=== PATIENT | male | born 1950 | race Caucasian/White ===

== ENCOUNTER 2018-11-16 06:23 | Inpatient (IN) | payer MEDICARE, OTHER ==
[~2018-11-16] VITALS: Ht 182.9 cm; Wt 152.5 kg
[~2018-11-16 06:23] MED LIST: GLIP5ER PO; GLIPIZIDE; INSLI100I SQ; INSLI100I SUBQ; INSULANI SC; INSULANI SUBQ; LANTUS; LISI5 PO; LISINOPRIL; METF500 PO; ONDA4 PO; ONDA4ODT MM; POTCHL20ER PO; RXONDA4ODT MM; SULTRIDS PO; TERB250 PO
[2018-11-16 07:42] LABS: BASOPHILS ABSOLUTE AUTO 0.04 K/mm3 (0.00-0.23); BASOPHILS PERCENT AUTO 0 % (0-2); EOSINOPHILS PERCENT AUTO 1 % (0-6); Hematocrit 29.2 % (37.0-53.0); Hemoglobin 9.3 g/dL (13.5-17.5); IMMATURE GRAN ABSOLUTE AUTO 0.06 K/mm3 (0.00-0.10); IMMATURE GRAN PERCENT AUTO 1 % (0-1); LYMPHOCYTES ABSOLUTE AUTO 1.06 K/mm3 (0.84-5.20); LYMPHOCYTES PERCENT AUTO 9 % (21-46); MONOCYTES ABSOLUTE AUTO 0.93 K/mm3 (0.16-1.47); MONOCYTES PERCENT AUTO 8 % (4-13); Mean Corpuscular HGB 30.1 pg (26.0-34.0); Mean Corpuscular HGB Conc 31.8 g/dL (31.5-36.5); Mean Corpuscular Volume 95 fL (80-100); NEUTROPHILS ABSOLUTE AUTO 9.54 K/mm3 (1.96-9.15); NEUTROPHILS PERCENT AUTO 81 % (41-73); Platelet Count 178 K/mm3 (150-400); RDW Coefficient Variation 15.8 % (11.7-14.2); RDW Standard Deviation 55.2 fL (35.1-46.3); Red Blood Cell Count 3.09 M/mm3 (4.30-5.90); White Blood Cell Count 11.73 K/mm3 (4.00-11.30)
[2018-11-16] MEDS ORDERED: ASPI81CH PO (07:44)
[2018-11-16] MEDS ORDERED: ACET325 PO (07:44)
[2018-11-16] MEDS ORDERED: BISA10S PR (07:45)
[2018-11-16] MEDS ORDERED: CHOL10002 (07:45)
[2018-11-16] MEDS ORDERED: CHLO25B PO (07:46)
[2018-11-16] MEDS ORDERED: CLOBET30L TOP (07:47)
[2018-11-16] MEDS ORDERED: FINA5 PO ×2 (07:49→12:43)
[2018-11-16] MEDS ORDERED: LOSARTAN POTAS100 MG PO (07:50)
[2018-11-16] MEDS ORDERED: METO100ER PO (07:51)
[2018-11-16] MEDS ORDERED: THERA1 EACH (07:52)
[2018-11-16] MEDS ORDERED: METF500C PO ×2 (07:52→13:04)
[2018-11-16] MEDS ORDERED: Belladonna-Opi1 EACH PR (07:54)
[2018-11-16] MEDS ORDERED: TAMS.4ER PO (07:56)
[2018-11-16] MEDS ORDERED: Vitamin D2000 UNIT PO (07:57)
[2018-11-16 07:58] LABS: International Normalized Ratio 1.14; Prothrombin Time Results 11.9 Sec (9.7-11.5)
[2018-11-16 08:05] LABS: Albumin, Blood 2.2 g/dL (3.4-5.0); Albumin/Globulin Ratio 0.3 (0.8-1.8); Bilirubin, Total 1.3 mg/dL (0.1-1.0); Bun/Creatinine Ratio 27.1 (12.0-20.0); Calcium, Blood 8.7 mg/dL (8.5-10.1); Creatinine, Blood 1.33 mg/dL (0.60-1.20); Globulin, Blood 6.6 g/dL (2.2-4.0); Potassium, Blood 4.5 mmol/L (3.5-5.5); Total Protein, Blood 8.8 g/dL (6.4-8.2)
[2018-11-16 08:11] LABS: Source, Urine Catheter
[2018-11-16 08:17] LABS: Bilirubin, Urine Neg (Neg); Blood, Urine 3+ (Neg); Glucose Qualitative, Urine Neg (Neg); Ketones, Urine 1+ (Neg); Leukocyte Esterase, Urine 3+ (Neg); Nitrite, Urine Pos (Neg); Protein, Urine 2+ (Neg); Urobilinogen, Urine NORM (Normal)
[2018-11-16 08:34] LABS: Appearance, Urine Hazy (Clear); Bacteria Few /hpf; Color, Urine Yellow (P-Yellow); Squamous Epithelial Cells Not Seen /hpf (Few); White Blood Cells, Urine 25-50 /hpf (0-5)
[2018-11-16] MEDS ORDERED: LO-DOSE ASPIRIN81 MG PO (12:34)
[2018-11-16] MEDS ORDERED: CLOTRIMAZOLE TOP (12:41)
[2018-11-16] MEDS ORDERED: CALCIUM 600 +1 EAC1 PO (13:06)
[2018-11-16] MEDS ORDERED: Belladonna-Opi1 EAC1 PR (13:09)
[2018-11-16 16:22] LABS: Source, Urine Catheter
[2018-11-16 16:29] LABS: Bilirubin, Urine Neg (Neg); Blood, Urine 5+ (Neg); Glucose Qualitative, Urine 4+ (Neg); Ketones, Urine 1+ (Neg); Leukocyte Esterase, Urine 2+ (Neg); Nitrite, Urine Neg (Neg); Protein, Urine 2+ (Neg); Specific Gravity, Urine 1.015 (1.003-1.022); Urobilinogen, Urine NORM (Normal)
[2018-11-16 16:36] LABS: Appearance, Urine Clear (Clear); Color, Urine Yellow (P-Yellow)
[2018-11-16 16:38] LABS: Red Blood Cells, Urine 25-50 /hpf (0-2)
[2018-11-16 16:39] LABS: Bacteria Not Seen /hpf; Squamous Epithelial Cells Rare /hpf (Few)
[2018-11-16 18:44] LABS: PCO2 Arterial 27.8 mmHg (35-45); PO2 Arterial 61.7 mmHg (80-100); pH Blood Arterial 7.44 (7.35-7.45)
--- NOTE | 2018-11-16 18:59 | NUR ---
CALL TO DR RANKIN CALLED TO NOTIFY OF CHANGE STATUS, VS, BEHAVIOR, PAIN. NEW ORDERS REC, CAME TO BEDSIDE. 0.4MG NARCAN ADMIN, 10 HYDRAL X2, COOLING BLANKET APPLIED (PT HAD ICE PACKS WHICH WERE INEFFECTIVE). RN AT BEDSIDE WAITING FOR ASSIGN TO WINDOWS DESKTOP SUPPORT FOR XFER.
--- NOTE | 2018-11-16 20:00 | NUR ---
TRANSFER PT ARRIVED TO ICU 9 AT 1930 FROM MEDICAL FLOOR VIA BED. PT IS AWAKE AND MOANING OUT UPON ARRIVAL. PT ANSWERS QUESTIONS APPROPRIATELY. PT COMPLAINS OF PAIN WITH BP CUFF INFLATION. VITAL SIGNS STABLE. PT ON ROOM AIR. NS INFUSING AT 150 ML/HR. PT WITH ICE PACKS AND FANS FOR COOLING AT THIS TIME. 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 PT ABLE TO MOVE LUE. PT WITH BROWNING IN PLACE WITH YELLOW OUTPUT NOTED. FAMILY AT BEDSIDE. WILL CONTINUE TO MONITOR.
[2018-11-17 03:58] LABS: Hematocrit 29.8 % (37.0-53.0); Hemoglobin 9.4 g/dL (13.5-17.5); Mean Corpuscular HGB 29.7 pg (26.0-34.0); Mean Corpuscular HGB Conc 31.5 g/dL (31.5-36.5); Mean Corpuscular Volume 94 fL (80-100); Mean Platelet Volume 9.9 fL (9.1-12.4); Platelet Count 152 K/mm3 (150-400); Red Blood Cell Count 3.17 M/mm3 (4.30-5.90); White Blood Cell Count 13.14 K/mm3 (4.00-11.30)
[2018-11-17 04:13] LABS: Bun/Creatinine Ratio 22.3 (12.0-20.0); Calcium, Blood 8.1 mg/dL (8.5-10.1); Creatinine, Blood 1.48 mg/dL (0.60-1.20); Potassium, Blood 5.1 mmol/L (3.5-5.5)
--- NOTE | 2018-11-17 05:42 | NUR ---
SHIFT SUMMARY NO ACUTE CHANGES THIS SHIFT. PT HAS IMPROVED MENTATION THIS MORNING. PT IS ABLE TO CONVERSE IN FULL SENTENCES WHEN AWAKE. PT RESTING QUIETLY AT THIS TIME. VITAL SIGNS HAVE REMAINED STABLE. PT ON ROOM AIR. PT AFEBRILE AT THIS TIME. NS INFUSING AT 150 ML/HR WITH ZOSYN IVPB. BROWNING REMAINS IN PLACE WITH GOOD URINE OUTPUT THIS SHIFT. NO CHANGES TO PT'S MOBILITY OR SENSATION. FAMILY MEMBER REMAINS AT BEDSIDE. WILL CONTINUE TO MONITOR AND REPORT OFF TO ONCOMING RN.
--- NOTE | 2018-11-17 07:00 | NUR ---
RECEIVED REPORT FROM RONALD ISSA, AND ASSUMED CARE OF PT.
--- NOTE | 2018-11-17 09:23 | NUR ---
NURSING SUMMARY SLEEPY, WAKES EASILY TO VOICE, ORIENTED X4, AT BEDSIDE. TEMPERATURE 98.1 TEMPORAL. LUNGS CLEAR, DIMINISHED AT BASES, ROOM AIR, SATS 91-94%, DENIES SOB. SR ON MONITOR, HR 80'S, MILD HYPERTENSION, ON ROUTINE ANTI-HYPERTENSIVES. POSITIVE BOWEL SOUNDS IN ALL 4 QUADRANTS, DISTENDED, NON-TENDER, REFUSING TO EAT BREAKFAST. OBESE. STATES, "I'M TOO TIRED." CHRONIC BROWNING, WAS REPLACED IN HOSPITAL YESTERDAY 11/16, YELLOW URINE OUTPUT. SKIN INTACT. LEFT HAND/FOREARM IV AND LEFT AC IV, INFUSING NS AT 150 CC/HR. STARTED ZOSYN. BLOOD SUGARS AC&HS, 378 THIS AM, COVERED WITH HUMALOG 8 UNITS, REPORTED ELEVATED BLOOD SUGARS TO DR. COLEMAN, INSULIN COVERAGES INCREASED. NEW ORDER FOR STATUS CHANGE TO MEDICAL.
--- NOTE | 2018-11-17 10:40 | NUR ---
TALKED WITH JOVANA, TWO WAY RADIO INSTALLER, RE: PT'S HISTORY OF MRSA. JOVANA TO OBTAIN WRITTEN DOCUMENTATION FROM THE [facility] SO WE CAN UPDATE OUR SYSTEM.
--- NOTE | 2018-11-17 16:24 | NUR ---
NURSING SUMMARY SLEPT MOST OF THE DAY, AWAKENS EASILY TO VOICE, ORIENTED X4. NO MOVEMENT OF RIGHT ARM, CONTRACTED FINGERS, WASH CLOTH PLACED IN HAND TO PREVENT FINGERNAILS FROM DIGGING INTO THE SKIN ON PT'S HAND. BILATERAL LEGS WITH MINIMAL MOVEMENT. FULL MOVEMENT IN LEFT ARM. EDEMA TO BILATERAL HANDS AND FEET, HANDS ELEVATED ON PILLOWS, PT DOES NOT WANT LEGS ELEVATED. LUNGS CLEAR, DIMINISHED AT BASES, ROOM AIR. NSR ON MONITOR, HR 60'S, NO ECTOPY NOTED, BLOOD PRESSURE WNL. TEMPORAL TEMPERATURE WNL. ABDOMEN DISTENDED, NON-TENDER, POOR APPETITE, BLOOD SUGARS AC&HS AND HAVE BEEN ELEVATED AND REQUIRING INSULIN COVERAGE, INCREASED INSULIN COVERAG OF HUMALOG AND LANTUS TODAY. CHRONID BROWNING IN PLACE, CHANGED OUT YESTERDAY, ADEQUATE DARK YELLOW URINE OUTPUT. FAMILY AT BEDSIDE ALL DAY. STAYED THE NIGHT LAST NIGHT AND TODAY. JOVANA, EXCEL VBA DEVELOPER, STATED THAT [facility] [place] BUT NEEDS TO GO AT LEAST 24 HOURS WITHOUT A FEVER WHICH WILL BE AT 1900 TONIGHT. TWO IV'S IN LEFT ARM, LEFT WRIST/HAND AND LEFT AC. WRIST BAND REMOVED FROM RIGHT WRIST DUE TO BEING TOO TIGHT, PLACED ON LEFT ANKLE.
--- NOTE | 2018-11-17 17:00 | NUR ---
REPORT GIVEN TO RONALD LEMOS, WHOM WILL ASSUME CARE OF PT ONCE TRANSFERRED TO THE MEDICAL FLOOR ROOM 340.
--- NOTE | 2018-11-17 18:04 | NUR ---
PT ARRIVED ON THE UNIT AT 1800. TRANSFERRED TO THE BED BY THE LIFT. PT IS SLEEPING. FAMILY IS AT THE BEDSIDE.
--- NOTE | 2018-11-18 05:10 | NUR ---
68 Y/O MORBID OBESE MALE RESTED QUIETLY ALL EVENING WITH AT SIDE IN LOUNGE CHAIR. PTS BROWNING CATHETER DRAINING CLEAR YELLOW FLUID. PTS RIGHT ARM FLACCID, ABLE TO TAKE PILLS AND WATER X 1 ASSIST VIA LEFT HAND. PT ALERT AND ORIENTED X 3. PT VOICED HE HAS BEEN AT [facility] PAST 7 YEARS (HE RETIRED FROM [employer] IN 1993) HERE IN [place], [place]. PT MEDICATED WITH ROXICODONE 5MG X 2 FOR GENERALIZED PAIN LAST NIGHT WITH RELIEF FELT. PT DENIES NAUSEA. PT BED IN LOW POSITION, CALL LIGHT AT SIDE.
[2018-11-18 05:51] LABS: Bun/Creatinine Ratio 21.5 (12.0-20.0); Calcium, Blood 7.6 mg/dL (8.5-10.1); Potassium, Blood 4.4 mmol/L (3.5-5.5)
[2018-11-18 06:01] LABS: BASOPHILS ABSOLUTE AUTO 0.04 K/mm3 (0.00-0.23); BASOPHILS PERCENT AUTO 0 % (0-2); EOSINOPHILS ABSOLUTE AUTO 0.31 K/mm3 (0.00-0.68); EOSINOPHILS PERCENT AUTO 3 % (0-6); Hematocrit 28.5 % (37.0-53.0); Hemoglobin 8.7 g/dL (13.5-17.5); IMMATURE GRAN ABSOLUTE AUTO 0.02 K/mm3 (0.00-0.10); IMMATURE GRAN PERCENT AUTO 0 % (0-1); LYMPHOCYTES ABSOLUTE AUTO 2.91 K/mm3 (0.84-5.20); LYMPHOCYTES PERCENT AUTO 31 % (21-46); MONOCYTES ABSOLUTE AUTO 1.42 K/mm3 (0.16-1.47); MONOCYTES PERCENT AUTO 15 % (4-13); Mean Corpuscular HGB 30.1 pg (26.0-34.0); Mean Corpuscular HGB Conc 30.5 g/dL (31.5-36.5); Mean Platelet Volume 10.3 fL (9.1-12.4); NEUTROPHILS ABSOLUTE AUTO 4.71 K/mm3 (1.96-9.15); NEUTROPHILS PERCENT AUTO 50 % (41-73); Platelet Count 136 K/mm3 (150-400); RDW Coefficient Variation 16.4 % (11.7-14.2); RDW Standard Deviation 59.3 fL (35.1-46.3); Red Blood Cell Count 2.89 M/mm3 (4.30-5.90); White Blood Cell Count 9.41 K/mm3 (4.00-11.30)
[2018-11-18 06:03] LABS: Mean Corpuscular Volume 99 fL (80-100)
--- NOTE | 2018-11-18 18:36 | NUR ---
SHIFT SUMMARY 68 YR OLD MALE. ADMIT FOR SEVERE SEPSIS. CONTACT PRECAUTIONS FOR MRSA IN OLD WOUND. RESIDES AT [facility] COMPUTER OPERATIONS SUPERVISOR CARE. HX:MS (RT ARM FLACCID), DM 2. 2 IV'S IN LEFT ARM. PT REFUSED CPAP EARLIER, HOPEFUL CAN CONVINCE HIM TO UTILIZE IT. PT REFUSED MOM AND COLACE FOR LACK OF BM IN 2 DAYS. IF THREE DAYS AN ENEMA MAY BE GIVEN, IT IS REPORTED HE DOES NOT REFUSE ENEMAS. DISCHARGE PAPERS COMPLETED AND IN FRONT OF CHART. AWAITING SC TO PLACE BACK IN THEIR PRISON CARE
--- NOTE | 2018-11-19 04:59 | NUR ---
SHIFT SUMMARY PT ADMITTED FOR SEVERE SEPSIS. CONTACT ISOLATION FOR HX OF MRSA. FULL CODE. ADA DIET. TELE-NSR WITH A FIRST DEGREE BLOCK AT A RATE OF 66 PER HUMAN RESOURCES TECHNICIAN. CBG AT AND . DC TODAY AND ORDERS ARE IN. 20G IV TO LW FA AND 18G IV TO L AC. BEDBOUND AND W/C BOUND AT BASELINE. R SIDE FLACCID DUE TO MS. FLAVIO BROWNING. TAKES MEDICATIONS WHOLE. REFUSES CARE AT TIMES. REFUSED C-PAP AND FORM IS SIGNED IN PT CHART. PT LIVES AT [facility] AND PLANS TO RETURN THERE TODAY. PT MEDICATED FOR PAIN TIMES ONE THIS NIGHT. AT BEDSIDE. PT PRESENTED WITH CONFUSION. APPEARED TO SLEEP COMFORTABLY THROUGHOUT THE NIGHT OFF AND ON, NO APPARENT SIGNS OF ACUTE DISTRESS. ABLE TO MAKE NEEDS KNOWN AND CALL LIGHT IN REACH.
[2018-11-19 05:27] LABS: BASOPHILS ABSOLUTE AUTO 0.02 K/mm3 (0.00-0.23); BASOPHILS PERCENT AUTO 0 % (0-2); EOSINOPHILS ABSOLUTE AUTO 0.22 K/mm3 (0.00-0.68); EOSINOPHILS PERCENT AUTO 2 % (0-6); Hematocrit 29.7 % (37.0-53.0); Hemoglobin 9.4 g/dL (13.5-17.5); IMMATURE GRAN ABSOLUTE AUTO 0.05 K/mm3 (0.00-0.10); IMMATURE GRAN PERCENT AUTO 0 % (0-1); LYMPHOCYTES ABSOLUTE AUTO 3.45 K/mm3 (0.84-5.20); LYMPHOCYTES PERCENT AUTO 28 % (21-46); MONOCYTES ABSOLUTE AUTO 1.14 K/mm3 (0.16-1.47); MONOCYTES PERCENT AUTO 9 % (4-13); Mean Corpuscular HGB 29.8 pg (26.0-34.0); Mean Corpuscular HGB Conc 31.6 g/dL (31.5-36.5); Mean Platelet Volume 10.1 fL (9.1-12.4); NEUTROPHILS ABSOLUTE AUTO 7.62 K/mm3 (1.96-9.15); NEUTROPHILS PERCENT AUTO 61 % (41-73); Platelet Count 169 K/mm3 (150-400); RDW Coefficient Variation 16.2 % (11.7-14.2); RDW Standard Deviation 56.1 fL (35.1-46.3); Red Blood Cell Count 3.15 M/mm3 (4.30-5.90)
[2018-11-19 05:28] LABS: Mean Corpuscular Volume 94 fL (80-100)
[2018-11-19 05:40] LABS: Bun/Creatinine Ratio 25.7 (12.0-20.0); Calcium, Blood 8.3 mg/dL (8.5-10.1); Creatinine, Blood 1.67 mg/dL (0.60-1.20); Potassium, Blood 3.8 mmol/L (3.5-5.5)
--- NOTE | 2018-11-19 18:28 | NUR ---
PATIENT A/OX4 THIS SHIFT. CHAIR FAST AT BASELINE. PATIENT REQUIRES ASSISTANCE WITH MEALS DUE TO R ARM PARALYSIS. CHRONIC BROWNING DRAINING TO GRAVITY. 2 IV'S TO L ARM WNL AND SL BETWEEN ABX. MEDICATED WITH OXYCODONE X2 THIS SHIFT TO CONTROL CHRONIC BACK/R SHOULDER PAIN. PATIENT CALM AND COOPERATIVE WITH CARE. FALL PRECAUTIONS IN PLACE PER UNIT PROTOCOL. VSS THIS SHIFT. BLOOD SUGAR THIS AMWAS 37. PATIENT REFUSED THE D50 THAT WAS ORDERED AND ATE SOME SNACKS AND BREAKFAST. BLOOD SUGAR CAME UP AND LANTUS AND METFORMIN HELD THIS AM AT PATIENT REQUEST. PLAN IS FOR PATIENT TO DC BACK TO THE [facility] WHERE HE RESIDES WHEN THEY ARE ABLE TO ACCEPT HIM
--- NOTE | 2018-11-20 05:37 | NUR ---
SHIFT SUMMARY PT SLEPT WELL, MEDICATED X1 THIS SHIFT FOR PAIN. PT REPOSITIONED TO LEFT SIDE, MEPILEX IN PLACE ON BOTTOM. PT APPEARS TO HAVE SOME PRESSURE ULCERS DEVELOPING ON BOTTOM AREA. PT PREFERS TO LIE ON HIS BACK, BUT STAFF CONVINCED HIM HE NEEDED TO BE TURNED TO GET SOME PRESSURE OFF OF HIS BOTTOM AREA. LEGS PROPPED UP ONTO PILLOWS. BROWNING BAG EMPTIED X2 THIS SHIFT. WILL CONTINUE TO MONITOR.
[2018-11-20 07:57] LABS: Bun/Creatinine Ratio 26.1 (12.0-20.0); Calcium, Blood 8.6 mg/dL (8.5-10.1); Creatinine, Blood 1.34 mg/dL (0.60-1.20); Potassium, Blood 4.2 mmol/L (3.5-5.5)
--- NOTE | 2018-11-20 17:37 | NUR ---
SHIFT SUMMARY THE PATIENT PRESENTED THIS SHIFT A&O X4, VITALS WNL AND WITH LUNG SOUNDS THAT WERE DIMINISHED. THE PATIENT'S SPOUSE WAS IN THE PATIENT'S ROOM UNTIL THIS AFTERNOON, BEFORE GOING HOME. THE PATIENT HAS MEPELEX ON HIS COCCYX AREA AND A ONE ON HIS RIGHT BUTT CHEEK. THE AREA ON HIS RIGHT CHEEK APEARS TO HAVE TWO SMALLL AREAS [id number] THAT MEASURES 3CM X 3.5 CM. THE PATIENT'S BLOOD GLUCOSE AT 1630 WAS 36 AND HE PATIENT WAS GIVEN D50. THE PATIENT'S BLOOD GLUCOSE AFTER 45 MINTUES WAS 97. THE PATIENT IS RESTING AT THIS TIME, WILL CONTINUE TO MONITOR.
--- NOTE | 2018-11-21 05:51 | NUR ---
*SHIFT SUMMARY* PATIENT IS ALERT AND ORIENTED TO PLACE, FAMILY, AND TIME. PICTURES TAKEN AND PLACED IN CHART ALONG WITH CONSENT. ON ROOM AIR. PATIENT SLEPT OFF AND ON THROUGHOUT THE NIGHT. MEDICATED FOR PAIN THIS AM. PT PLACED IN BARIATRIC BED. HELD LANTUS FOR BLOOD SUGAR WAS 85. VITALS STABLE.
--- NOTE | 2018-11-21 16:57 | NUR ---
NO ACUTE CHANGES THIS SHIFT. DISCHARGE ORDERS ARE IN AND PATIENT IS AWAITING RETURN BACK TO THE [place] [facility]. PATIENT COOPERATIVE WITH CARE. 2 18G IV'S TO L FA WNL AND SL. TAKES MEDS WHOLE WITH WATER. ACHS BLOOD SUGARS, LANTUS ADJUSTED TODAY PER MD ORDER. VSS THIS SHIFT. OXYCODONE PRN FOR PAIN. NO BM SINCE11/17, BOWEL CARE STARTED. MEPILEX DRESSINGS TO COCCYX REMAINS C/D/I AND PICTURES TAKEN LAST SHIFT.
[2018-11-22 05:47] LABS: BASOPHILS ABSOLUTE AUTO 0.04 K/mm3 (0.00-0.23); BASOPHILS PERCENT AUTO 0 % (0-2); EOSINOPHILS ABSOLUTE AUTO 0.44 K/mm3 (0.00-0.68); EOSINOPHILS PERCENT AUTO 4 % (0-6); Hematocrit 29.6 % (37.0-53.0); Hemoglobin 9.3 g/dL (13.5-17.5); IMMATURE GRAN ABSOLUTE AUTO 0.06 K/mm3 (0.00-0.10); IMMATURE GRAN PERCENT AUTO 1 % (0-1); LYMPHOCYTES ABSOLUTE AUTO 2.71 K/mm3 (0.84-5.20); LYMPHOCYTES PERCENT AUTO 27 % (21-46); MONOCYTES ABSOLUTE AUTO 0.84 K/mm3 (0.16-1.47); MONOCYTES PERCENT AUTO 8 % (4-13); Mean Corpuscular HGB 29.3 pg (26.0-34.0); Mean Corpuscular HGB Conc 31.4 g/dL (31.5-36.5); Mean Corpuscular Volume 93 fL (80-100); Mean Platelet Volume 9.8 fL (9.1-12.4); NEUTROPHILS ABSOLUTE AUTO 5.91 K/mm3 (1.96-9.15); NEUTROPHILS PERCENT AUTO 59 % (41-73); Platelet Count 193 K/mm3 (150-400); RDW Standard Deviation 53.8 fL (35.1-46.3); Red Blood Cell Count 3.17 M/mm3 (4.30-5.90)
--- NOTE | 2018-11-22 06:01 | NUR ---
*SHIFT SUMMARY* PT IS ALERT AND ORIENTED. RECIEVED A SUPPOSITORY, THE ENEMA DID NOT ABSORB. PT REFUSED TO USE BEDPAN, INSTEAD WANTED TO GET UP TO BSC. USED LIFT TO HOVER PT OVER THE COMMODE. PT HAD SMALL FORMED, BROWN BM. PT DID USE CALL LIGHT QUITE FREQUENTLY THROUGHOUT THE NIGHT. STAFF WOULD LEAVE THE ROOM AND ASK IF HE HAD ANY NEEDS BEFORE LEAVING THE ROOM THEN WOULD USE CALL LIGHT MOMENTS AFTER. VITAL SIGNS STABLE. NO OTHER CHANGES.
[2018-11-22 06:12] LABS: Anion Gap 8 mmol/L (6-16); Blood Urea Nitrogen 33 mg/dL (8-24); CO2, Blood 23 mmol/L (21-32); Calcium, Blood 8.9 mg/dL (8.5-10.1); Chloride, Blood 105 mmol/L (98-108); Creatinine, Blood 1.03 mg/dL (0.60-1.20); Glomerular Filtration Rate >60 (60-); Glucose, Blood 160 mg/dL (70-99); Potassium, Blood 4.4 mmol/L (3.5-5.5); Sodium, Blood 136 mmol/L (136-145)
--- NOTE | 2018-11-22 07:00 | NUR ---
ASSUMED CARE OF PT- BEDSIDE REPORT COMPLETED WITH NIGHT RN. PT SLEEPING AT THE TIME OF REPORT, SPOUSE AT THE BEDSIDE. PER REPORT PT IS A 2P MAX ASSIST FOR ALL TRANSFERS AND IS A LIFT PT. PT ON A BARIATRIC BED WITH THE CALL LIGHT IN REACH. PER REPORT PT CALLS APPROPRIATELY. PT HAS MS AND HAS EXTREMITIES THAT ARE PARALIZED. PT ALERT AND ORIENTED.
--- NOTE | 2018-11-22 18:28 | NUR ---
SHIFT SUMMARY- PT HAS HAD NO ACUTE CHANGES T/O THE SHIFT. [facility]. PT HAS BEEN REPOSITIONED FREQUENTLY T/O THE SHIFT. PT DID NOT WANT TO BE REPOSITIONED HOWEVER ONCE HE WAS HE BECAME COMFORTABLE AND SLEPT SOUNDLY FOR A WHILE. PER SPOUSE AT THE BEDSIDE HE APPEARS MORE COMFORTABLE WITH FREQUENT MOVEMENTS. PT HAS A PRESSURE SORE ON HIS BOTTOM COVERED WITH MEPILEX PER REPORT FROM NIGHT RN, UNABLE TO VISUALIZE. PT HAS NOT HAD A BM TODAY, BROWNING IS PATENT AND DRAINING, ASSISTS AND PROVIDES CARE FOR PT.
--- NOTE | 2018-11-23 05:45 | NUR ---
*SHIFT SUMMARY* PATIENT ALERT AND ORIENTED. PLAN TO [facility] TO [facility]. PATIENT SLEPT THROUGHOUT THE NIGHT WELL. NO COMPLAINTS OF PAIN. AT BEDSIDE. VITAL SIGNS STABLE.
--- NOTE | 2018-11-23 14:12 | NUR ---
DISCHARGE PATIENT DISCHARGED BACK TO [facility] AT THE ME. PATIENT TRANSFERED VIA [facility]. DISCHARGE PACKET GIVEN TO FURRIER APPRENTICE. IV REMOVED WITHOUT DIFFICULTY. REPORT CALLED TO [facility] NURSE. BELONGINGS WITH PATIENT'S .
== END 2018-11-23 13:39 | DRG 698 ==
LOC: DELPENDDIS → ER 06:23 → MEDS 06:24 → ER 10:35 → MEDS 10:35 → ICUW 10:35 → MEDS 10:35 → ICUW 19:13 → MEDS 19:13 → ICUW 19:13 → MEDS 11-17 17:36 → ENPENDDIS 11-18 11:05 → MEDS 11-19 08:16
PROVIDERS: Emergency Medicine; Hospitalist; ADMIT Internal Medicine
DX: T83.511A Infection and inflammatory reaction due to indwelling urethral catheter, initial encounter (principal); N17.0 Acute kidney failure with tubular necrosis; R65.20 Severe sepsis without septic shock; A41.51 Sepsis due to Escherichia coli [E. coli]; E87.2 Acidosis; N39.0 Urinary tract infection, site not specified; L89.302 Pressure ulcer of unspecified buttock, stage 2; E11.9 Type 2 diabetes mellitus without complications; E86.0 Dehydration; G35 Multiple sclerosis; Z74.01 Bed confinement status; I10 Essential (primary) hypertension; N40.1 Benign prostatic hyperplasia with lower urinary tract symptoms; G47.33 Obstructive sleep apnea (adult) (pediatric); F32.9 Major depressive disorder, single episode, unspecified; Z79.4 Long term (current) use of insulin
CPT/HCPCS: 36415; 36600; 71045; 80048; 80053; 81001; 82803; 82947; 83605; 85025; 85027; 85610; 85730; 87040; 87077; 87086; 87186; 93005; 93010; 96365; 99285-25; G0378; J0360; J0696; J1650; J2310; J2543; J7030; J7050; J7120

== ENCOUNTER 2019-10-16 09:12 | Emergency (ER) | payer MEDICARE, OTHER ==
[~2019-10-16] VITALS: Ht 182.9 cm; Wt 142.9 kg
[~2019-10-16 09:12] MED LIST changes: +ACET325 PO; +ASPI81CH PO; +BISA10S PR; +Belladonna-Opi1 EAC1 PR; +Belladonna-Opi1 EACH PR; +CALCIUM 600 +1 EAC1 PO; +CHLO25B PO; +CHOL10002; +CLOBET30L TOP; +CLOTRIMAZOLE TOP; +FINA5 PO; +LO-DOSE ASPIRIN81 MG PO; +LOSARTAN POTAS100 MG PO; +METF500C PO; +METO100ER PO; +TAMS.4ER PO; +THERA1 EACH; +Vitamin D2000 UNIT PO
[2019-10-16 09:37] LABS: BASOPHILS ABSOLUTE AUTO 0.07 K/mm3 (0.00-0.23); BASOPHILS PERCENT AUTO 0 % (0-2); EOSINOPHILS ABSOLUTE AUTO 0.47 K/mm3 (0.00-0.68); EOSINOPHILS PERCENT AUTO 3 % (0-6); Hematocrit 29.8 % (37.0-53.0); Hemoglobin 9.2 g/dL (13.5-17.5); IMMATURE GRAN ABSOLUTE AUTO 0.08 K/mm3 (0.00-0.10); IMMATURE GRAN PERCENT AUTO 1 % (0-1); LYMPHOCYTES PERCENT AUTO 16 % (21-46); MONOCYTES ABSOLUTE AUTO 0.96 K/mm3 (0.16-1.47); MONOCYTES PERCENT AUTO 6 % (4-13); Mean Corpuscular HGB Conc 30.9 g/dL (31.5-36.5); Mean Corpuscular Volume 100 fL (80-100); Mean Platelet Volume 10.4 fL (9.1-12.4); NEUTROPHILS ABSOLUTE AUTO 12.39 K/mm3 (1.96-9.15); NEUTROPHILS PERCENT AUTO 74 % (41-73); Platelet Count 207 K/mm3 (150-400); RDW Coefficient Variation 16.1 % (11.7-14.2); RDW Standard Deviation 57.6 fL (35.1-46.3); Red Blood Cell Count 2.97 M/mm3 (4.30-5.90); White Blood Cell Count 16.67 K/mm3 (4.00-11.30)
[2019-10-16] MEDS ORDERED: PANT40 PO (09:41)
[2019-10-16] MEDS ORDERED: MIRALAX17 GM PO (09:41)
[2019-10-16] MEDS ORDERED: PROP80ER PO (09:42)
[2019-10-16] MEDS ORDERED: Florastor250 MG PO (09:42)
[2019-10-16 09:53] LABS: Albumin, Blood 2.1 g/dL (3.4-5.0); Albumin/Globulin Ratio 0.3 (0.8-1.8); Bilirubin, Total 1.5 mg/dL (0.1-1.0); Calcium, Blood 8.3 mg/dL (8.5-10.1); Creatinine, Blood 1.76 mg/dL (0.60-1.20); Globulin, Blood 6.5 g/dL (2.2-4.0); Potassium, Blood 4.8 mmol/L (3.5-5.5); Total Protein, Blood 8.6 g/dL (6.4-8.2)
== END 2019-10-16 17:14 | disposition home or self-care (01) ==
LOC: ER 09:12
PROVIDERS: Emergency Medicine
DX: R06.00 Dyspnea, unspecified (principal); E11.40 Type 2 diabetes mellitus with diabetic neuropathy, unspecified; I10 Essential (primary) hypertension; F32.9 Major depressive disorder, single episode, unspecified; N40.0 Benign prostatic hyperplasia without lower urinary tract symptoms; Z79.899 Other long term (current) drug therapy; Z88.7 Allergy status to serum and vaccine
CPT/HCPCS: 71045; 78582; 80053; 85025; 93005; 93010; 96360; 99285-25; A9540; A9558; J7030

== ENCOUNTER 2020-01-11 16:53 | Observation (INO) | payer OTHER, MEDICARE ==
[~2020-01-11] VITALS: Ht 182.9 cm; Wt 149.0 kg
[~2020-01-11 16:53] MED LIST changes: -ACET325 PO; -CALCIUM 600 +1 EAC1 PO; -CHLO25B PO; +Florastor250 MG PO; -LOSARTAN POTAS100 MG PO; +MIRALAX17 GM PO; -THERA1 EACH
[2020-01-11 17:40] LABS: Hematocrit 25.5 % (37.0-53.0); Hemoglobin 7.6 g/dL (13.5-17.5)
[2020-01-11 18:21] LABS: International Normalized Ratio 1.03
[2020-01-11] MEDS ORDERED: ACET325 PO (18:23)
[2020-01-11] MEDS ORDERED: LOSA50 PO (18:24)
[2020-01-11] MEDS ORDERED: CHLO25B PO (18:24)
[2020-01-11] MEDS ORDERED: Daily Multiple1 EACH PO (18:25)
[2020-01-11] MEDS ORDERED: FINA5 PO (18:25)
[2020-01-11] MEDS ORDERED: CALCIUM 600 +1 EAC1 PO (18:26)
[2020-01-11] MEDS ORDERED: TAMS.4ER PO (18:32)
[2020-01-11] MEDS ORDERED: Inderal80 MG PO (18:32)
[2020-01-11] MEDS ORDERED: PANT40 PO (18:33)
[2020-01-11] MEDS ORDERED: HUMULIN R500 UNIT/2 SC (18:36)
[2020-01-11] MEDS ORDERED: LACT10SY PO (18:37)
[2020-01-11] MEDS ORDERED: ANTIFUNGAL POWD71 GM TOP (18:38)
[2020-01-11] MEDS ORDERED: Percocet 5-3251 EACH PO (18:39)
[2020-01-11] MEDS ORDERED: SIME80CH PO (18:41)
[2020-01-11 18:58] LABS: Percent Saturation 8.6 % (20.0-50.0)
[2020-01-11 20:41] LABS: Source, Urine Clean Catch
[2020-01-11 20:50] LABS: Appearance, Urine Hazy (Clear); Bilirubin, Urine Neg (Neg); Blood, Urine 5+ (Neg); Color, Urine Yellow (P-Yellow); Glucose Qualitative, Urine Neg (Neg); Ketones, Urine Neg (Neg); Leukocyte Esterase, Urine 1+ (Neg); Nitrite, Urine Neg (Neg); Protein, Urine 1+ (Neg); Urobilinogen, Urine NORM (Normal)
[2020-01-11 20:58] LABS: Red Blood Cells, Urine 50-100 /hpf (0-2); Squamous Epithelial Cells Few /hpf (Few)
[2020-01-11 20:59] LABS: Bacteria Mod /hpf
[2020-01-11 23:48] LABS: Hematocrit 28.4 % (37.0-53.0); Hemoglobin 8.4 g/dL (13.5-17.5)
--- NOTE | 2020-01-12 00:07 | NUR ---
HG 8.4.
--- NOTE | 2020-01-12 05:39 | NUR ---
01/11/20 2140 PT ADMITTED TO ROOM 331 PER CART FROM ER; REPORT RECEIVED FROM RONALD MONTGOMERY; PT SLIDE FROM CART TO BED VIA SLIDER SHEET X 5 ASSIST; PT MORBID OBESE AND PARAPLEGIC; SEE PHOTOS ON CHART (PT SIGNED CONSENT FORM).
--- NOTE | 2020-01-12 05:41 | NUR ---
SHIFT SUMMARY: 69 Y/O MORBID OBESE MALE RESTED COMFORTABLY ALL SHIFT; PTS RIGHT UPPER PORT WILL NOT DRAW LABS; BROWNING DRAINING CLEAR YELLOW FLUID; ALERT AND ORIENTED X 4; CONTACT ISOLATION APPLIED; SEE PHOTOS ON CHART; BED ALARM APPLIED, BED LOW POSITION, CALL LIGHT AT SIDE.
[2020-01-12 05:51] LABS: Bun/Creatinine Ratio 14.8 (12.0-20.0); Calcium, Blood 7.7 mg/dL (8.5-10.1); Creatinine, Blood 1.28 mg/dL (0.60-1.20); Potassium, Blood 5.3 mmol/L (3.5-5.5)
[2020-01-12 05:58] LABS: BASOPHILS ABSOLUTE AUTO 0.05 K/mm3 (0.00-0.23); BASOPHILS PERCENT AUTO 1 % (0-2); EOSINOPHILS ABSOLUTE AUTO 0.31 K/mm3 (0.00-0.68); EOSINOPHILS PERCENT AUTO 4 % (0-6); Hematocrit 26.3 % (37.0-53.0); Hemoglobin 7.6 g/dL (13.5-17.5); IMMATURE GRAN ABSOLUTE AUTO 0.03 K/mm3 (0.00-0.10); IMMATURE GRAN PERCENT AUTO 0 % (0-1); LYMPHOCYTES ABSOLUTE AUTO 1.89 K/mm3 (0.84-5.20); LYMPHOCYTES PERCENT AUTO 25 % (21-46); MONOCYTES PERCENT AUTO 11 % (4-13); Mean Corpuscular HGB 28.4 pg (26.0-34.0); Mean Corpuscular HGB Conc 28.9 g/dL (31.5-36.5); Mean Corpuscular Volume 98 fL (80-100); Mean Platelet Volume 10.3 fL (9.1-12.4); NEUTROPHILS ABSOLUTE AUTO 4.53 K/mm3 (1.96-9.15); NEUTROPHILS PERCENT AUTO 60 % (41-73); Platelet Count 170 K/mm3 (150-400); RDW Coefficient Variation 14.9 % (11.7-14.2); RDW Standard Deviation 53.1 fL (35.1-46.3); Red Blood Cell Count 2.68 M/mm3 (4.30-5.90); White Blood Cell Count 7.61 K/mm3 (4.00-11.30)
[2020-01-12] MEDS ORDERED: FERSU300 PO (14:54)
--- NOTE | 2020-01-12 16:21 | NUR ---
1445 REPORT CALLED TO ID FOR ONCOMING PT. 1530 PT TO DISCHARGE BACK TO ID. TRANSPORT CAME . PT ASSISTED TO [facility] WITH LIFT AND STAFF. PACKED BELONGINGS.
== END 2020-01-12 15:54 ==
LOC: ER 16:53 → MEDS 21:31
PROVIDERS: Emergency Medicine; ADMIT Family Medicine
DX: R21 Rash and other nonspecific skin eruption (principal); D50.9 Iron deficiency anemia, unspecified; K75.81 Nonalcoholic steatohepatitis (NASH); K21.9 Gastro-esophageal reflux disease without esophagitis; N40.0 Benign prostatic hyperplasia without lower urinary tract symptoms; G35 Multiple sclerosis; E66.9 Obesity, unspecified; E11.22 Type 2 diabetes mellitus with diabetic chronic kidney disease; E11.40 Type 2 diabetes mellitus with diabetic neuropathy, unspecified; I12.9 Hypertensive chronic kidney disease with stage 1 through stage 4 chronic kidney disease, or unspecified chronic kidney disease; F32.9 Major depressive disorder, single episode, unspecified; N18.3 Chronic kidney disease, stage 3 (moderate); N39.0 Urinary tract infection, site not specified; G47.33 Obstructive sleep apnea (adult) (pediatric); Z79.899 Other long term (current) drug therapy; Z79.4 Long term (current) use of insulin; Z96.0 Presence of urogenital implants; Z88.0 Allergy status to penicillin; Z88.8 Allergy status to other drugs, medicaments and biological substances; Z88.7 Allergy status to serum and vaccine; K76.6 Portal hypertension; K31.89 Other diseases of stomach and duodenum; I85.10 Secondary esophageal varices without bleeding; F17.220 Nicotine dependence, chewing tobacco, uncomplicated; Z68.41 Body mass index [BMI] 40.0-44.9, adult
CPT/HCPCS: 36415; 51702; 80048; 81001; 82272; 82607; 82728; 82746; 82947; 83540; 83550; 85014; 85018; 85025; 85610; 85730; 86850; 86900; 86901; 87077; 87086; 87186; 96374-59; 96375; 99285-25; A9270-GY; C9113; G0378; J1200; J1815

== ENCOUNTER 2020-09-13 15:18 | Inpatient (IN) | payer MEDICARE, OTHER ==
[~2020-09-13] VITALS: Ht 180.3 cm; Wt 142.1 kg
[~2020-09-13 15:18] MED LIST changes: +ACET325 PO; +ANTIFUNGAL POWD71 GM TOP; +CALCIUM 600 +1 EAC1 PO; +CHLO25B PO; +Daily Multiple1 EACH PO; +FERSU300 PO; +HUMULIN R500 UNIT/2 SC; +Inderal 20 mg T20 MG PO; +LACT10SY PO; +LOSA50 PO; +OXYC10TA19 PO; +PANT40 PO; +SIME80CH PO
[2020-09-13] MEDS ORDERED: Acetic Acid1000 ML TOP (15:50)
[2020-09-13] MEDS ORDERED: HUMULIN R500 UNIT/2 SC (16:02)
[2020-09-13] MEDS ORDERED: BASAGLAR K100 UNIT/1 SC (16:02)
[2020-09-13 18:29] LABS: Influenza A, PCR NEGATIVE (NEGATIVE); Influenza B, PCR NEGATIVE (NEGATIVE); Resp Syncytial Virus, PCR NEGATIVE (NEGATIVE); SARS-Cov-2 (COVID-19) PCR, MMC NEGATIVE (NEGATIVE)
[2020-09-13 18:53] LABS: Source, Urine Catheter
[2020-09-13 19:17] LABS: Bilirubin, Urine Neg (Neg); Blood, Urine 5+ (Neg); Glucose Qualitative, Urine Neg (Neg); Ketones, Urine Neg (Neg); Leukocyte Esterase, Urine 3+ (Neg); Nitrite, Urine Neg (Neg); Protein, Urine 2+ (Neg); Urobilinogen, Urine NORM (Normal)
--- NOTE | 2020-09-13 19:50 | NUR ---
pt arrived to the medical floor from the er a/ox3, pt transfered via lift to the bed, the pt was oriented to the room layout and call system, call light in reach, report given to noc nurse
[2020-09-13 19:54] LABS: Appearance, Urine Cloudy (Clear); Bacteria Many /hpf; Color, Urine Yellow (P-Yellow); Squamous Epithelial Cells Mod /hpf (Few); White Blood Cells, Urine TNTC /hpf (0-5)
[2020-09-14] MEDS ORDERED: FERSU300 PO (01:27)
[2020-09-14] MEDS ORDERED: FINA5 PO (01:27)
[2020-09-14] MEDS ORDERED: Percocet 5-3251 EACH PO (01:31)
[2020-09-14] MEDS ORDERED: MICONAZOLE 2% TOP (01:31)
[2020-09-14] MEDS ORDERED: SIME80CH PO (01:33)
[2020-09-14] MEDS ORDERED: TAMS.4ER PO (01:34)
[2020-09-14 04:56] LABS: BASOPHILS ABSOLUTE AUTO 0.04 K/mm3 (0.00-0.23); BASOPHILS PERCENT AUTO 0 % (0-2); EOSINOPHILS PERCENT AUTO 2 % (0-6); Hematocrit 27.9 % (37.0-53.0); Hemoglobin 8.5 g/dL (13.5-17.5); IMMATURE GRAN ABSOLUTE AUTO 0.05 K/mm3 (0.00-0.10); IMMATURE GRAN PERCENT AUTO 0 % (0-1); LYMPHOCYTES ABSOLUTE AUTO 2.33 K/mm3 (0.84-5.20); LYMPHOCYTES PERCENT AUTO 19 % (21-46); MONOCYTES ABSOLUTE AUTO 0.96 K/mm3 (0.16-1.47); MONOCYTES PERCENT AUTO 8 % (4-13); Mean Corpuscular HGB 30.7 pg (26.0-34.0); Mean Corpuscular HGB Conc 30.5 g/dL (31.5-36.5); Mean Corpuscular Volume 101 fL (80-100); Mean Platelet Volume 10.6 fL (9.1-12.4); NEUTROPHILS ABSOLUTE AUTO 8.63 K/mm3 (1.96-9.15); NEUTROPHILS PERCENT AUTO 70 % (41-73); Platelet Count 152 K/mm3 (150-400); RDW Coefficient Variation 18.3 % (11.7-14.2); RDW Standard Deviation 67.2 fL (35.1-46.3); Red Blood Cell Count 2.77 M/mm3 (4.30-5.90); White Blood Cell Count 12.31 K/mm3 (4.00-11.30)
[2020-09-14 05:13] LABS: Bun/Creatinine Ratio 20.8 (12.0-20.0); Calcium, Blood 8.1 mg/dL (8.5-10.1); Creatinine, Blood 1.78 mg/dL (0.60-1.20); Potassium, Blood 4.5 mmol/L (3.5-5.5)
--- NOTE | 2020-09-14 05:58 | NUR ---
SHIFT SUMMARY: PATIENT IS A&OX3 UNSURE OF DATE. ATE 50 % OF DINNER, BOLLD GLOCSE AT HS WAS 90. HOLLY ARGUETA WAS NOTIFIED AND ORDER TO HOLD ALL INSULIN TONIGH. PATIENT IS LETHARGIC AND HAS SLEPT THROUGH THE NIGHT. PATIENT HAS USE OF LEFT UPPER EXTREMITY ONLY AND IS ABLE TO FEED SELF AND OPERATE CALL FERNANDO. T&P IS GIVE Q2H, PATIENT IS RELUCTANT AND WOULD RATHER NOT BE WOKEN BUT WAS COOPERATIVE WITH STAFF AND CARE PLAN.
--- NOTE | 2020-09-14 18:26 | NUR ---
SHIFT SUMMARY PT A/O X3 AND IS ABLE TO MAKE HIS NEEDS KNOWN. BILATERAL CATARACTS SO THE PATIENT HAS A VERY HARD TIME SEEING. PARAPALEGIC AND R ARM FLACCIDITY. ON IV FLUIDS AND IV ANTIBIOTICS. HAD TWO LARGE BMS TODAY AND REFUSED HIS LACTULOSE. CHRONIC BROWNING IN PLACE; PATENT AND DRAINING. VSS; WILL REPORT TO NIGHT RN.
--- NOTE | 2020-09-15 04:58 | NUR ---
STOCK PARTS INSPECTOR SUMMARY A/OX3, TRANSFERS USING LIFT D/T PARAPLEGIA. MOVEMENT TO THE L. ARM. LR RUNNING AT 50MLS/HR TO MEDIPORT. HERNIA NOTED ON ABD. DENIES PAIN OR SOB AT THIS TIME. BED IN LOWEST POSITION WITH CALL LIGHT IN REACH. WILL CONTINUE TO MONITOR AND REPORT TO ONCOMING RN.
[2020-09-15 05:07] LABS: BASOPHILS ABSOLUTE AUTO 0.05 K/mm3 (0.00-0.23); BASOPHILS PERCENT AUTO 1 % (0-2); EOSINOPHILS ABSOLUTE AUTO 0.26 K/mm3 (0.00-0.68); EOSINOPHILS PERCENT AUTO 4 % (0-6); Hematocrit 26.7 % (37.0-53.0); Hemoglobin 8.4 g/dL (13.5-17.5); IMMATURE GRAN ABSOLUTE AUTO 0.02 K/mm3 (0.00-0.10); IMMATURE GRAN PERCENT AUTO 0 % (0-1); LYMPHOCYTES ABSOLUTE AUTO 2.45 K/mm3 (0.84-5.20); LYMPHOCYTES PERCENT AUTO 33 % (21-46); MONOCYTES ABSOLUTE AUTO 0.81 K/mm3 (0.16-1.47); MONOCYTES PERCENT AUTO 11 % (4-13); Mean Corpuscular HGB Conc 31.5 g/dL (31.5-36.5); Mean Corpuscular Volume 99 fL (80-100); Mean Platelet Volume 10.2 fL (9.1-12.4); NEUTROPHILS ABSOLUTE AUTO 3.87 K/mm3 (1.96-9.15); NEUTROPHILS PERCENT AUTO 52 % (41-73); Platelet Count 160 K/mm3 (150-400); RDW Coefficient Variation 18.1 % (11.7-14.2); RDW Standard Deviation 65.1 fL (35.1-46.3); Red Blood Cell Count 2.71 M/mm3 (4.30-5.90); White Blood Cell Count 7.46 K/mm3 (4.00-11.30)
[2020-09-15 05:41] LABS: Anion Gap 9 mmol/L (6-16); Blood Urea Nitrogen 31 mg/dL (8-24); Bun/Creatinine Ratio 22.6 (12.0-20.0); CO2, Blood 23 mmol/L (21-32); Chloride, Blood 105 mmol/L (98-108); Creatinine, Blood 1.37 mg/dL (0.60-1.20); Glomerular Filtration Rate 55 (60-); Glucose, Blood 195 mg/dL (70-99); Phosphorus, Blood 2.7 mg/dL (2.5-4.9); Potassium, Blood 4.1 mmol/L (3.5-5.5); Sodium, Blood 137 mmol/L (136-145)
--- NOTE | 2020-09-15 17:30 | NUR ---
PT AOX4 AND COOPERATIVE OF CARE. PT NEEDS REPOSTIONED EVERY COUPLE HOURS. PT ALSO HAS NEEDED TO HAVE BM X2 TODAY AND LIFT WAS USED. PT REFUSED HIS LACTALOSE AND REQUESTED MIRALAX WHICH DR LAM ADDED TO THE EMAR. MEPIPLEX WAS CHANGED ON COCCYX AREA. WILL CONTINUE TO MONITOR.
--- NOTE | 2020-09-16 05:13 | NUR ---
FINANCIAL MANAGEMENT ANALYST SUMMARY A/O 2-3, HX OF MS REQUIRING A LIFT FOR TRANSFERS. APPEARED TO SLEEP T/O THE NIGHT. TELE IN PLACE RUNNING SR IN THE 70'S. MEDICATED FOR PAIN X1. DENIES SOB. NO ACUTE CHANGES AT THIS TIME. BED IN LOWEST POSITION WITH CALL LIGHT IN REACH. WILL CONTINUE TO MONITOR AND REPORT TO ONCOMING RN.
--- NOTE | 2020-09-16 17:46 | NUR ---
PT AOX4 AND COOPERATIVE OF CARE. PT IS A Q2 TURN AND NEEDS PILLOWS REPOSTIONED NEEDED. PT IS ABLE TO COMMUNICATE HIS NEEDS. MEPIPLEX WAS CHANGED ON COCCYX AREA. NO DISTRESS NOTED AND CALL LIGHT AVAILBLE. PT TREATED FOR PAIN PER EMAR.
--- NOTE | 2020-09-16 18:19 | NUR ---
PT HAD INCREASING BP AND DR LAM NOTIFIED AND ADDED MEDICATION TO EMAR. WILL GIVEN NORVASC 5 MG NOW AND CONTINUE TO MONITOR PT.
--- NOTE | 2020-09-17 04:15 | NUR ---
SCHOOL PATROL SUMMARY A/O 2-3, USE OF LIFT FOR TRANSFERS AND REPOSITIONING. DENIES PAIN OR SOB. NO ACUTE CHANGES THIS SHIFT. BED IN LOWEST POSITION WITH CALL LIGHT IN REACH. WILL CONTINUE TO MONITOR AND REPORT TO ONCOMING RN.
[2020-09-17] MEDS ORDERED: FINA5 PO (12:02)
[2020-09-17] MEDS ORDERED: TOUJEO MAX300 UNIT/2 SC (12:05)
[2020-09-17] MEDS ORDERED: AMLO5 PO (12:07)
[2020-09-17] MEDS ORDERED: CONSTULOSE10 GM/15 M PO (12:07)
[2020-09-17] MEDS ORDERED: AMOX500 PO (12:08)
[2020-09-17 12:10] LABS: Influenza A, PCR NEGATIVE (NEGATIVE); Influenza B, PCR NEGATIVE (NEGATIVE); Resp Syncytial Virus, PCR NEGATIVE (NEGATIVE); SARS-Cov-2 (COVID-19) PCR, MMC NEGATIVE (NEGATIVE)
--- NOTE | 2020-09-17 14:25 | NUR ---
PT AOX3-4 AND COOPERATIVE OF CARE. [facility] 14[facility]ER. REPORT WAS GIVEN PRIOR TO DISCHARGE. PT DENIED ANY NEED FOR PAIN MEDS AND WAS TURNED AND REPOSITIONED Q2 HRS. MEPIPLEX WAS IN PLACE AND CLEAN ON COCCYX AREA. ALL PERSONAL BELONGS COLLECTED BY PT'S . NO DISTRESS NOTED.
== END 2020-09-17 14:20 | DRG 698 ==
LOC: ER 15:18 → MEDS 16:05 → ENPENDDIS 09-17 11:35 → MEDS 09-17 14:20
PROVIDERS: Internal Medicine; ADMIT Family Medicine
DX: T83.592A Infection and inflammatory reaction due to indwelling ureteral stent, initial encounter (principal); A41.51 Sepsis due to Escherichia coli [E. coli]; R65.20 Severe sepsis without septic shock; N39.0 Urinary tract infection, site not specified; G82.20 Paraplegia, unspecified; N17.9 Acute kidney failure, unspecified; Z20.822 Contact with and (suspected) exposure to COVID-19; D50.0 Iron deficiency anemia secondary to blood loss (chronic); D63.8 Anemia in other chronic diseases classified elsewhere; E11.319 Type 2 diabetes mellitus with unspecified diabetic retinopathy without macular edema; E78.5 Hyperlipidemia, unspecified; E88.09 Other disorders of plasma-protein metabolism, not elsewhere classified; F32.9 Major depressive disorder, single episode, unspecified; G35 Multiple sclerosis; G47.33 Obstructive sleep apnea (adult) (pediatric); I12.9 Hypertensive chronic kidney disease with stage 1 through stage 4 chronic kidney disease, or unspecified chronic kidney disease; E11.22 Type 2 diabetes mellitus with diabetic chronic kidney disease; N18.30 Chronic kidney disease, stage 3 unspecified; K75.81 Nonalcoholic steatohepatitis (NASH); Z74.01 Bed confinement status; N40.1 Benign prostatic hyperplasia with lower urinary tract symptoms; K21.9 Gastro-esophageal reflux disease without esophagitis; I27.20 Pulmonary hypertension, unspecified
CPT/HCPCS: 0241U; 36415; 71045; 76770; 80048; 80069; 81001; 82947; 83605; 85025; 87077; 87086; 87186; 96365; 99285-25; A9270; J0696; J1642; J1650; J1815; J7030; J7050; J7120

== ENCOUNTER 2020-11-24 21:30 | Inpatient (IN) | payer OTHER, MEDICARE ==
[~2020-11-24] VITALS: Ht 182.9 cm; Wt 137.8 kg
[~2020-11-24 21:30] MED LIST changes: +AMLO5 PO; +AMOX500 PO; +Acetic Acid1000 ML TOP; +BASAGLAR K100 UNIT/1 SC; +CONSTULOSE10 GM/15 M PO; +MICONAZOLE 2% TOP; +Percocet 5-3251 EACH PO; +TOUJEO MAX300 UNIT/2 SC
[2020-11-24 22:29] LABS: BASOPHILS ABSOLUTE AUTO 0.07 K/mm3 (0.00-0.23); BASOPHILS PERCENT AUTO 0 % (0-2); EOSINOPHILS ABSOLUTE AUTO 0.17 K/mm3 (0.00-0.68); EOSINOPHILS PERCENT AUTO 1 % (0-6); Hematocrit 25.4 % (37.0-53.0); Hemoglobin 8.3 g/dL (13.5-17.5); IMMATURE GRAN ABSOLUTE AUTO 0.28 K/mm3 (0.00-0.10); IMMATURE GRAN PERCENT AUTO 1 % (0-1); LYMPHOCYTES ABSOLUTE AUTO 2.54 K/mm3 (0.84-5.20); LYMPHOCYTES PERCENT AUTO 9 % (21-46); MONOCYTES ABSOLUTE AUTO 1.23 K/mm3 (0.16-1.47); MONOCYTES PERCENT AUTO 4 % (4-13); Mean Corpuscular HGB 31.1 pg (26.0-34.0); Mean Corpuscular HGB Conc 32.7 g/dL (31.5-36.5); Mean Corpuscular Volume 95 fL (80-100); NEUTROPHILS ABSOLUTE AUTO 24.92 K/mm3 (1.96-9.15); NEUTROPHILS PERCENT AUTO 85 % (41-73); Platelet Count 179 K/mm3 (150-400); RDW Coefficient Variation 14.3 % (11.7-14.2); RDW Standard Deviation 49.7 fL (35.1-46.3); Red Blood Cell Count 2.67 M/mm3 (4.30-5.90); White Blood Cell Count 29.21 K/mm3 (4.00-11.30)
[2020-11-24 22:42] LABS: Albumin, Blood 2.1 g/dL (3.4-5.0); Albumin/Globulin Ratio 0.4 (0.8-1.8); Bun/Creatinine Ratio 30.9 (12.0-20.0); Calcium, Blood 7.9 mg/dL (8.5-10.1); Creatinine, Blood 1.52 mg/dL (0.60-1.20); Globulin, Blood 5.7 g/dL (2.2-4.0); Potassium, Blood 3.7 mmol/L (3.5-5.5); Total Protein, Blood 7.8 g/dL (6.4-8.2)
--- NOTE | 2020-11-25 01:05 | NUR ---
ASSUMPTION OF CARE PT ARRIVED TO ICU ROOM 1. PT ON RA, SPO2 99%, HR 60'S, SBP 140'S. PT INCONTINENT OF STOOL UPON ARRIVAL. REDNESS TO L HEEL, PHOTO TAKEN. EXCORIATION TO BUTTOCKS AND POSTERIOR THIGHS, AREA CLEANED, PHOTOS TAKEN, BARRIER CREAM APPLIED. PT IS PARAPALEGIC WITH MS, CONTRACTURED RUE WITH GROSS MOVEMENT, GROSS MOVEMENT TO LUE, AND FLACCID BLE WITH FOOTDROP. PT DENIES PAIN AT THIS TIME. BROWNING PATENT, DRAINING LYNNE URINE TO GRAVITY. ALERT AND ORIENTED, CALL LIGHT WITHIN REACH, SIDERAILS UP FOR SAFETY.
[2020-11-25 02:54] LABS: Source, Urine Catheter
[2020-11-25 02:59] LABS: Appearance, Urine Clear (Clear); Bilirubin, Urine Neg (Neg); Blood, Urine 3+ (Neg); Color, Urine Amber (P-Yellow); Glucose Qualitative, Urine Neg (Neg); Ketones, Urine 1+ (Neg); Leukocyte Esterase, Urine 3+ (Neg); Nitrite, Urine Neg (Neg); Protein, Urine 2+ (Neg); Specific Gravity, Urine 1.015 (1.003-1.022); Urobilinogen, Urine NORM (Normal)
[2020-11-25 03:06] LABS: Bacteria Many /hpf; Squamous Epithelial Cells Few /hpf (Few); White Blood Cells, Urine 25-50 /hpf (0-5)
[2020-11-25 04:03] LABS: BASOPHILS ABSOLUTE AUTO 0.08 K/mm3 (0.00-0.23); BASOPHILS PERCENT AUTO 0 % (0-2); EOSINOPHILS ABSOLUTE AUTO 0.18 K/mm3 (0.00-0.68); EOSINOPHILS PERCENT AUTO 1 % (0-6); Hematocrit 25.5 % (37.0-53.0); IMMATURE GRAN ABSOLUTE AUTO 0.11 K/mm3 (0.00-0.10); IMMATURE GRAN PERCENT AUTO 1 % (0-1); LYMPHOCYTES ABSOLUTE AUTO 2.24 K/mm3 (0.84-5.20); LYMPHOCYTES PERCENT AUTO 10 % (21-46); MONOCYTES PERCENT AUTO 4 % (4-13); Mean Corpuscular HGB 30.3 pg (26.0-34.0); Mean Corpuscular HGB Conc 31.4 g/dL (31.5-36.5); Mean Corpuscular Volume 97 fL (80-100); Mean Platelet Volume 10.7 fL (9.1-12.4); NEUTROPHILS ABSOLUTE AUTO 19.95 K/mm3 (1.96-9.15); NEUTROPHILS PERCENT AUTO 85 % (41-73); Platelet Count 171 K/mm3 (150-400); RDW Coefficient Variation 14.4 % (11.7-14.2); RDW Standard Deviation 50.4 fL (35.1-46.3); Red Blood Cell Count 2.64 M/mm3 (4.30-5.90); White Blood Cell Count 23.56 K/mm3 (4.00-11.30)
[2020-11-25 04:24] LABS: Albumin/Globulin Ratio 0.4 (0.8-1.8); Bilirubin, Total 1.2 mg/dL (0.1-1.0); Bun/Creatinine Ratio 28.8 (12.0-20.0); Creatinine, Blood 1.53 mg/dL (0.60-1.20); Globulin, Blood 5.6 g/dL (2.2-4.0); Magnesium, Blood 1.9 mg/dL (1.6-2.4); Potassium, Blood 3.5 mmol/L (3.5-5.5); Total Protein, Blood 7.6 g/dL (6.4-8.2)
--- NOTE | 2020-11-25 09:00 | NUR ---
ASSUMPTION OF CARE ASSUMED CARE OF PT AT 0715. PT IS ALERT AND ABLE TO ANSWER QUESTIONS. HE IS AWARE OF HIS SURROUNDINGS AND PARTICIPATES IN CONVERSATION. HAS MOMENTS OF CONFUSION SUCH ASKING NAMES AND TITLES SEVERAL TIMES, REPEATING PHRASES. PT IS ABLE TO LIGHTLY SQUEEZE WITH R HAND BUT IS SLOW TO RESPOND, L HAND LIGHT FIXTURE SERVICER IS STRONG. UNABLE TO MOVE LEGS OR WIGGLE TOES. DR HANNA AT BEDSIDE FOR EVAL, CHANGED PT STATUS TO MEDICAL FLOOR. SHE WOULD LIKE THE PT TO USE AN INCENTIVE SPIROMETER, PT GIVEN ONE AND RECEIVED INSTRUCTIONS ON USE. MORNING CBG OF 84. ELOINA, PCT, ASSISTED PT TO EAT BREAKFAST DUE TO LACK OF UPPER EXTREMITY CONTROL. PT ATE ALMOST ALL OF HIS MEAL. PROTECTIVE BANDAGES APPLIED TO BILATERAL HEELS TO PREVENT SKIN BREAKDOWN. BROWNING IS PATENT AND DRAINING. PT IS AFEBRILE AT THIS TIME. VSS. SEE SHIFT ASSESSMENT.
--- NOTE | 2020-11-25 17:27 | NUR ---
SHIFT SUMMARY PT REMAINS ON RA WITH BIOX >95%. PT IS ALERT AND ORIENTED WITH MOMENTS OF CONFUSION. PT COOPERATIVE WITH CARE AND ASKS TO BE REPOSITIONED. PT ASSISTED WITH MEALS. VITAL SIGNS REMAIN STABLE. TMAX 99.2. BROWNING REMAINS PATENT WITH OUTPUT OF 1000ML DURING SHIFT. NS INFUSING AT 100MLS/HR ALONG WITH ZOSYN. SCDS ON, HEEL PROTECTIVE PADS STILL IN PLACE. PT HAS NO COMPLAINTS OF PAIN. AWAITING ROOM ASSIGNMENT ON MEDICAL FLOOR. WILL REPORT TO ONCOMING RN.
--- NOTE | 2020-11-25 19:25 | NUR ---
ASSUMPTION OF CARE RECEIVED REPORT AT 1905 FROM JUAN PABLO CARDENAS. ASSUMED CARE OF PATIENT. PATIETN IN BED WITH EYES CLOSED, NO S/S OF DISTRESS. WILL REVIEW ORDERS AND TREAT PRESCRIBED.
--- NOTE | 2020-11-26 00:04 | NUR ---
REASSESSMENT NO ACUTE CHANGES FROM PREVIOUS ASSESSMENT. PATIENT REMAINS ASLEEP, EASILY AWAKENS TO VERBAL STIMULI. 2L [address] NC [address] SATS WERE PREVIOUSLY 85% ON RA. NOW 100%. REPOSITIONED CHARTED. BROWNING CATHETER WITH LYNNE, CLEAR URINE. IV FLUID OF NS INFUSING AT 100ML/HR ORDERED. WILL CONTINUE TO MONITOR, CALL LIGHT IN REACH.
--- NOTE | 2020-11-26 04:26 | NUR ---
REASSESSMENT NO ACUTE CHANGES FROM PREVIOUS ASSESSMENT. PATIENT CONTINUES TO REST, WAKING EASILY TO VERBAL STIMULI. NEEDS MET OF REPOSITIONING, AND NEW FLUIDS TO DRINK. PATIENT ON 2L 02 VIA NC TO MAINTAIN SATS. SATS DROP TO 85% ON RA WHEN ASLEEP. BROWNING REMAINS PATENT, CALL LIGHT IN REACH.
[2020-11-26 04:29] LABS: BASOPHILS ABSOLUTE AUTO 0.04 K/mm3 (0.00-0.23); BASOPHILS PERCENT AUTO 1 % (0-2); EOSINOPHILS ABSOLUTE AUTO 0.25 K/mm3 (0.00-0.68); EOSINOPHILS PERCENT AUTO 3 % (0-6); Hematocrit 24.2 % (37.0-53.0); Hemoglobin 7.9 g/dL (13.5-17.5); IMMATURE GRAN ABSOLUTE AUTO 0.04 K/mm3 (0.00-0.10); IMMATURE GRAN PERCENT AUTO 1 % (0-1); LYMPHOCYTES ABSOLUTE AUTO 2.18 K/mm3 (0.84-5.20); LYMPHOCYTES PERCENT AUTO 26 % (21-46); MONOCYTES ABSOLUTE AUTO 0.72 K/mm3 (0.16-1.47); MONOCYTES PERCENT AUTO 9 % (4-13); Mean Corpuscular HGB 30.9 pg (26.0-34.0); Mean Corpuscular HGB Conc 32.6 g/dL (31.5-36.5); Mean Corpuscular Volume 95 fL (80-100); Mean Platelet Volume 10.5 fL (9.1-12.4); NEUTROPHILS ABSOLUTE AUTO 5.18 K/mm3 (1.96-9.15); NEUTROPHILS PERCENT AUTO 62 % (41-73); Platelet Count 155 K/mm3 (150-400); RDW Coefficient Variation 14.6 % (11.7-14.2); RDW Standard Deviation 50.4 fL (35.1-46.3); Red Blood Cell Count 2.56 M/mm3 (4.30-5.90); White Blood Cell Count 8.41 K/mm3 (4.00-11.30)
[2020-11-26 04:53] LABS: Albumin, Blood 1.9 g/dL (3.4-5.0); Albumin/Globulin Ratio 0.3 (0.8-1.8); Bilirubin, Total 0.8 mg/dL (0.1-1.0); Bun/Creatinine Ratio 23.6 (12.0-20.0); Calcium, Blood 7.7 mg/dL (8.5-10.1); Creatinine, Blood 1.4 mg/dL (0.60-1.20); Globulin, Blood 5.8 g/dL (2.2-4.0); Potassium, Blood 3.7 mmol/L (3.5-5.5); Total Protein, Blood 7.7 g/dL (6.4-8.2)
--- NOTE | 2020-11-26 06:29 | NUR ---
SHIFT SUMMARY NO ACUTE EVENTS THROUGH SHIFT. PATIENT RESTED WELL THROUGH NIGHT, AWAKENING EASILY WITH PHYSICAL AND VERBAL STIMULI. REPOSITIONED CHARTED. VITALS STABLE. 2L 02 VIA NC REQUIRED WHILE ASLEEP TO MAINTAIN SATS. BROWNING CATHETER PATENT AND DRAINING LYNNE URINE. CALL LIGHT REMAINS IN REACH, WILL GIVE REPORT TO ONCOMING RN.
--- NOTE | 2020-11-26 06:50 | NUR ---
BLOOD CULTURES BLOOD CULTURES RESULTED GRAM +BACCILI. CALLED DR. DUNCAN'S CELL PHONE WITH NO ANSWER. WILL ALSO NOTIFY DAY SHIFT RN. ANTIOBIOTICS OF ZOSYN ALREADY ORDERED.
--- NOTE | 2020-11-26 07:13 | NUR ---
ASSUMED CARE: PT RESTING QUIETLY IN BED ON 2L. NO ACUTE NEEDS OR CONCERNS AT THIS TIME.
--- NOTE | 2020-11-26 18:05 | NUR ---
REPORT GIVEN TO MURALI CARDENAS. PT REMAINS ON RA WITH NC FOR SLEEP. PLAN PER DR CAMILO IS TO WAIT FOR BLOOD CULTURES TO GROW BEFORE TRANSFER TO [facility]. PT REMAINS RESTING IN BED WITH ATTEMPTS TO REPOSITION. PT STATES WHEN AND HOW HE WANTS REPOSITIONED. TRANSFERRED TO ROOM 355 VIA BED BY HOSPITAL STAFF. PT'S WAS MADE AWARE OF NEW ROOM FOR TRANSFER.
--- NOTE | 2020-11-27 04:17 | NUR ---
SHIFT SUMMARY ASSUMED CARE OF PT AT 1900. PT IS A/OX4. HEART SOUNDS REGULAR, LUNG SOUNDS CLEAR, PT WAS ON 2L NC AT NIGHT. PT HAD TWO INCONTIENT STOOLS. PT C/O PAIN IN HIS URETHRA FROM CATHETER, CATH DRAINING CLEAR YELLOW URINE. PT BUTTOCK IS DISCOLORED AND HAS SKIN BREAKDOWN BUT NO OPEN SORES. PT CANNOT MOVE LOWER LIMBS AND ONLY HAS GROSS MOVEMENT IN HIS R ARM. NO ACUTE EVENTS CALL LIGHT IN REACH, BED IN LOWEST POSTION.
[2020-11-27 05:04] LABS: BASOPHILS ABSOLUTE AUTO 0.03 K/mm3 (0.00-0.23); BASOPHILS PERCENT AUTO 1 % (0-2); EOSINOPHILS ABSOLUTE AUTO 0.23 K/mm3 (0.00-0.68); EOSINOPHILS PERCENT AUTO 4 % (0-6); Hematocrit 23.9 % (37.0-53.0); Hemoglobin 7.6 g/dL (13.5-17.5); IMMATURE GRAN ABSOLUTE AUTO 0.02 K/mm3 (0.00-0.10); IMMATURE GRAN PERCENT AUTO 0 % (0-1); LYMPHOCYTES ABSOLUTE AUTO 1.66 K/mm3 (0.84-5.20); LYMPHOCYTES PERCENT AUTO 29 % (21-46); MONOCYTES ABSOLUTE AUTO 0.47 K/mm3 (0.16-1.47); MONOCYTES PERCENT AUTO 8 % (4-13); Mean Corpuscular HGB 30.3 pg (26.0-34.0); Mean Corpuscular HGB Conc 31.8 g/dL (31.5-36.5); Mean Corpuscular Volume 95 fL (80-100); Mean Platelet Volume 10.1 fL (9.1-12.4); NEUTROPHILS ABSOLUTE AUTO 3.42 K/mm3 (1.96-9.15); NEUTROPHILS PERCENT AUTO 59 % (41-73); Platelet Count 157 K/mm3 (150-400); RDW Coefficient Variation 14.4 % (11.7-14.2); RDW Standard Deviation 50.3 fL (35.1-46.3); Red Blood Cell Count 2.51 M/mm3 (4.30-5.90); White Blood Cell Count 5.83 K/mm3 (4.00-11.30)
[2020-11-27 05:20] LABS: Albumin, Blood 1.9 g/dL (3.4-5.0); Anion Gap 4 mmol/L (6-16); Blood Urea Nitrogen 24 mg/dL (8-24); Bun/Creatinine Ratio 19.2 (12.0-20.0); CO2, Blood 24 mmol/L (21-32); Calcium, Blood 7.2 mg/dL (8.5-10.1); Chloride, Blood 110 mmol/L (98-108); Creatinine, Blood 1.25 mg/dL (0.60-1.20); Glomerular Filtration Rate >60 (60-); Glucose, Blood 300 mg/dL (70-99); Phosphorus, Blood 1.8 mg/dL (2.5-4.9); Potassium, Blood 3.6 mmol/L (3.5-5.5); Sodium, Blood 138 mmol/L (136-145)
[2020-11-27 11:30] LABS: Influenza A, PCR NEGATIVE (NEGATIVE); Influenza B, PCR NEGATIVE (NEGATIVE); Resp Syncytial Virus, PCR NEGATIVE (NEGATIVE); SARS-Cov-2 (COVID-19) PCR, MMC NEGATIVE (NEGATIVE)
[2020-11-27] MEDS ORDERED: HUMALOG KW100 UNIT/1 SC (11:52)
[2020-11-27] MEDS ORDERED: VISBIOME 112.51 EACH PO (11:52)
[2020-11-27] MEDS ORDERED: AMPI500 PO (11:53)
--- NOTE | 2020-11-27 13:25 | NUR ---
STUDENT ASSESSMENT REVIEW I HAVE REVIEWED THE STUDENT'S ASSESSMENT, CONDUCTED MY OWN ASSESSMENT, AND I AGREE WITH THE STUDENT'S FINDINGS.
--- NOTE | 2020-11-27 16:56 | NUR ---
Discharge Summary, Patient was A/OX4 to person, place, time, and event. The patient was pleasent and compliant with care. He was bed bound r/t right sided paralysis. The patient was given verbal [facility] and he did not have any questions or concerns. The patient was [facility]ared to the [facility] via [facility] transportation.
== END 2020-11-27 14:20 | DRG 698 ==
LOC: ER 21:30 → ICUE 22:46 → ICUW 22:46 → ICUE 11-25 01:02 → MEDS 11-26 17:42
PROVIDERS: Emergency Medicine; Internal Medicine; Nurse Practitioner Acute Care; ADMIT Internal Medicine
DX: T83.511A Infection and inflammatory reaction due to indwelling urethral catheter, initial encounter (principal); A41.51 Sepsis due to Escherichia coli [E. coli]; R65.20 Severe sepsis without septic shock; A41.81 Sepsis due to Enterococcus; G82.20 Paraplegia, unspecified; Z68.41 Body mass index [BMI] 40.0-44.9, adult; N17.9 Acute kidney failure, unspecified; N39.0 Urinary tract infection, site not specified; E11.9 Type 2 diabetes mellitus without complications; D63.8 Anemia in other chronic diseases classified elsewhere; G35 Multiple sclerosis; G47.33 Obstructive sleep apnea (adult) (pediatric); Z20.822 Contact with and (suspected) exposure to COVID-19; Z88.7 Allergy status to serum and vaccine; D50.9 Iron deficiency anemia, unspecified; E11.22 Type 2 diabetes mellitus with diabetic chronic kidney disease; R33.9 Retention of urine, unspecified; N18.2 Chronic kidney disease, stage 2 (mild); N31.9 Neuromuscular dysfunction of bladder, unspecified; I12.9 Hypertensive chronic kidney disease with stage 1 through stage 4 chronic kidney disease, or unspecified chronic kidney disease; E78.5 Hyperlipidemia, unspecified; F32.9 Major depressive disorder, single episode, unspecified; Z98.890 Other specified postprocedural states; K21.9 Gastro-esophageal reflux disease without esophagitis; N40.0 Benign prostatic hyperplasia without lower urinary tract symptoms; E66.01 Morbid (severe) obesity due to excess calories; K74.60 Unspecified cirrhosis of liver
CPT/HCPCS: 0241U; 51702; 71045; 80053; 80069; 81001; 82140; 82947; 83605; 83690; 83735; 85025; 87040; 87076; 87077; 87086; 87186; 93005; 93010; 96365-59; 97110; 97161; 97530; 99285-25; A9270; J1642; J1650; J2543; J7030; J7120

== ENCOUNTER 2020-12-18 11:43 | Inpatient (IN) | payer OTHER, MEDICARE ==
[~2020-12-18] VITALS: Ht 182.9 cm; Wt 144.1 kg
[~2020-12-18 11:43] MED LIST changes: +AMPI500 PO; +HUMALOG KW100 UNIT/1 SC; +VISBIOME 112.51 EACH PO
[2020-12-18 12:25] LABS: BASOPHILS ABSOLUTE AUTO 0.06 K/mm3 (0.00-0.23); BASOPHILS PERCENT AUTO 0 % (0-2); EOSINOPHILS ABSOLUTE AUTO 0.05 K/mm3 (0.00-0.68); EOSINOPHILS PERCENT AUTO 0 % (0-6); Hemoglobin 8.3 g/dL (13.5-17.5); IMMATURE GRAN ABSOLUTE AUTO 0.32 K/mm3 (0.00-0.10); IMMATURE GRAN PERCENT AUTO 1 % (0-1); LYMPHOCYTES ABSOLUTE AUTO 2.56 K/mm3 (0.84-5.20); LYMPHOCYTES PERCENT AUTO 8 % (21-46); MONOCYTES ABSOLUTE AUTO 0.88 K/mm3 (0.16-1.47); MONOCYTES PERCENT AUTO 3 % (4-13); Mean Corpuscular HGB 29.9 pg (26.0-34.0); Mean Corpuscular HGB Conc 31.9 g/dL (31.5-36.5); Mean Corpuscular Volume 94 fL (80-100); Mean Platelet Volume 10.5 fL (9.1-12.4); NEUTROPHILS ABSOLUTE AUTO 27.42 K/mm3 (1.96-9.15); NEUTROPHILS PERCENT AUTO 88 % (41-73); Platelet Count 217 K/mm3 (150-400); RDW Coefficient Variation 14.4 % (11.7-14.2); RDW Standard Deviation 48.6 fL (35.1-46.3); Red Blood Cell Count 2.78 M/mm3 (4.30-5.90); White Blood Cell Count 31.29 K/mm3 (4.00-11.30)
[2020-12-18 12:52] LABS: Albumin, Blood 2.1 g/dL (3.4-5.0); Albumin/Globulin Ratio 0.3 (0.8-1.8); Bilirubin, Total 0.9 mg/dL (0.1-1.0); Bun/Creatinine Ratio 26.3 (12.0-20.0); Calcium, Blood 8.7 mg/dL (8.5-10.1); Creatinine, Blood 1.33 mg/dL (0.60-1.20); Globulin, Blood 6.6 g/dL (2.2-4.0); Potassium, Blood 3.9 mmol/L (3.5-5.5); Total Protein, Blood 8.7 g/dL (6.4-8.2)
[2020-12-18] MEDS ORDERED: Vitamin D2000 UNIT PO (14:13)
[2020-12-18] MEDS ORDERED: OXYC5 PO (14:17)
[2020-12-18] MEDS ORDERED: OXYC10TA19 PO (14:17)
[2020-12-18] MEDS ORDERED: MIRALAX17 GM PO (14:18)
[2020-12-18] MEDS ORDERED: Acetaminophen325 M1 PO (14:18)
[2020-12-18] MEDS ORDERED: METAMUCIL POWD575 GM PO (14:19)
[2020-12-18] MEDS ORDERED: Inderal60 MG PO (14:19)
[2020-12-18] MEDS ORDERED: FOSFOMYCIN TROME3 G1 PO (14:20)
[2020-12-18] MEDS ORDERED: LACT10SY PO (14:22)
[2020-12-18 15:37] LABS: Source, Urine Catheter
[2020-12-18 15:46] LABS: Appearance, Urine Cloudy (Clear); Bilirubin, Urine Neg (Neg); Blood, Urine 4+ (Neg); Color, Urine Yellow (P-Yellow); Glucose Qualitative, Urine Neg (Neg); Ketones, Urine 1+ (Neg); Leukocyte Esterase, Urine 3+ (Neg); Nitrite, Urine Pos (Neg); Protein, Urine 2+ (Neg); Specific Gravity, Urine 1.015 (1.003-1.022); Urobilinogen, Urine NORM (Normal)
[2020-12-18 16:04] LABS: Bacteria Many /hpf; Squamous Epithelial Cells Mod /hpf (Few); White Blood Cells, Urine TNTC /hpf (0-5)
[2020-12-18 16:47] LABS: Source, Urine Catheter
[2020-12-18 16:54] LABS: Appearance, Urine Hazy (Clear); Bilirubin, Urine Neg (Neg); Blood, Urine 2+ (Neg); Color, Urine Yellow (P-Yellow); Glucose Qualitative, Urine Neg (Neg); Ketones, Urine 1+ (Neg); Leukocyte Esterase, Urine 3+ (Neg); Nitrite, Urine Pos (Neg); Protein, Urine 1+ (Neg); Urobilinogen, Urine NORM (Normal)
[2020-12-18 17:07] LABS: Bacteria Many /hpf; Red Blood Cells, Urine 0-2 /hpf (0-2); Squamous Epithelial Cells Rare /hpf (Few)
[2020-12-18] MEDS ORDERED: BISA10S PR (19:36)
[2020-12-18] MEDS ORDERED: Acetic Acid1000 ML (19:36)
[2020-12-18] MEDS ORDERED: CALCIUM CIT 311 EACH PO (19:38)
[2020-12-18] MEDS ORDERED: DEX4 GLUCOSE33 G2 PO (19:41)
[2020-12-18] MEDS ORDERED: MINERAL OIL135 M1 PR (19:42)
[2020-12-18] MEDS ORDERED: GLUCAGEN1 MG/1 M1 IM (19:44)
[2020-12-18] MEDS ORDERED: HEPARIN IV (19:47)
[2020-12-18] MEDS ORDERED: VISBIOME 112.51 EACH PO (19:49)
[2020-12-18] MEDS ORDERED: METSALMENC TOP (19:50)
[2020-12-18] MEDS ORDERED: ANTIFUNGAL POWD71 GM TOP (19:52)
[2020-12-18] MEDS ORDERED: BELLADONNA PR (19:54)
[2020-12-18] MEDS ORDERED: OPIUM PR (19:54)
[2020-12-18] MEDS ORDERED: SIME80CH PO (19:56)
--- NOTE | 2020-12-18 20:32 | NUR ---
SHIFT SUMMARY PT ARRIVED THIS EVENING TO PCU, HE WAS TRANSFERRED [facility] THE [facility]. PT ARRIVED WITH AN ACCESSED RIGHT SUBCLAVIAN MEDIPORT, KVO FLUIDS WERE HUNG AND HEPARIN LOCK FLUSH WAS ORDERED. PT ARRIVED WITH CHRONIC BROWNING IN PLACE, IT WAS REPLACED UPON ADMISSION, PT HAS NEUROGENIC BLADDER. PT HAD MULTIPLE WOUNDS, PICTURES WERE TAKEN AND DOCUMENTATION WAS PLACED IN THE CHART. VS STABLE UPON ARRIVAL WITH THE EXCEPTION OF AN ELEVATED TEMP; PT WAS MEDICATED PER EMAR. PT NEEDS A CEILING LIFT FOR TRANSFER. PT RESTING IN BED AT THIS TIME
[2020-12-19 04:35] LABS: BASOPHILS ABSOLUTE AUTO 0.06 K/mm3 (0.00-0.23); BASOPHILS PERCENT AUTO 0 % (0-2); EOSINOPHILS ABSOLUTE AUTO 0.11 K/mm3 (0.00-0.68); EOSINOPHILS PERCENT AUTO 0 % (0-6); Hematocrit 21.8 % (37.0-53.0); IMMATURE GRAN ABSOLUTE AUTO 0.23 K/mm3 (0.00-0.10); IMMATURE GRAN PERCENT AUTO 1 % (0-1); LYMPHOCYTES ABSOLUTE AUTO 2.92 K/mm3 (0.84-5.20); LYMPHOCYTES PERCENT AUTO 11 % (21-46); MONOCYTES PERCENT AUTO 4 % (4-13); Mean Corpuscular HGB 29.8 pg (26.0-34.0); Mean Corpuscular HGB Conc 32.1 g/dL (31.5-36.5); Mean Corpuscular Volume 93 fL (80-100); Mean Platelet Volume 10.3 fL (9.1-12.4); NEUTROPHILS PERCENT AUTO 84 % (41-73); Platelet Count 182 K/mm3 (150-400); RDW Coefficient Variation 14.8 % (11.7-14.2); RDW Standard Deviation 49.5 fL (35.1-46.3); Red Blood Cell Count 2.35 M/mm3 (4.30-5.90); White Blood Cell Count 26.52 K/mm3 (4.00-11.30)
--- NOTE | 2020-12-19 04:42 | NUR ---
SHIFT SUMMARY NO ACUTE CHANGES THIS SHIFT. VSS. PT FEBRILE AT BEGINNING OF SHIFT BUT HAS SLOWLY TRENDED DOWN WNL TEMPS VIA TEMP BROWNING CATHETER. PT LETHARGIC BUT RESPONDS APPROPRIATELY TO MOST QUESTIONS. REFUSING CPAP. PT BEING TURNED BY STAFF AND OVERHEAD LIFT. R FOOT IN PROPHYLACTIC BOOT. MEPILEX TO SKIN TEAR/PI ON SACRUM AND R BUTTOCK. OTHERWISE, PT RESTING T/O NIGHT. WCTM.
[2020-12-19 04:59] LABS: Albumin, Blood 1.7 g/dL (3.4-5.0); Albumin/Globulin Ratio 0.3 (0.8-1.8); Bilirubin, Total 0.7 mg/dL (0.1-1.0); Bun/Creatinine Ratio 25.4 (12.0-20.0); Calcium, Blood 7.5 mg/dL (8.5-10.1); Creatinine, Blood 1.38 mg/dL (0.60-1.20); Globulin, Blood 5.7 g/dL (2.2-4.0); Magnesium, Blood 1.5 mg/dL (1.6-2.4); Potassium, Blood 3.7 mmol/L (3.5-5.5); Total Protein, Blood 7.4 g/dL (6.4-8.2)
[2020-12-19 13:05] LABS: Hemoglobin 6.7 g/dL (13.5-17.5); Mean Corpuscular HGB 29.6 pg (26.0-34.0); Mean Corpuscular HGB Conc 31.9 g/dL (31.5-36.5); Mean Corpuscular Volume 93 fL (80-100); Mean Platelet Volume 10.4 fL (9.1-12.4); Platelet Count 169 K/mm3 (150-400); RDW Coefficient Variation 14.9 % (11.7-14.2); RDW Standard Deviation 49.9 fL (35.1-46.3); Red Blood Cell Count 2.26 M/mm3 (4.30-5.90); White Blood Cell Count 22.08 K/mm3 (4.00-11.30)
[2020-12-19 13:38] LABS: Vancomycin, Trough 25.6 ug/mL (5.0-10.0)
--- NOTE | 2020-12-19 14:17 | NUR ---
Placed call to pt's Marcela this morning. She reports she will be over to see pt in a while during visiting hours this afternoon. She didn't seem aware of the POLST changes made by Wilfrido at the CT prior to being taken to on 12/18. He had previously had limited code status for several years, but then changed in suddently on 12/18. Plan to discuss with pt and when she arrives today.
--- NOTE | 2020-12-19 16:50 | NUR ---
Met with pt and his Fadia. Pt states he has been trying for years to change his POLST back to Full Code from the 2012 Limited intervention. He states he definitely wants to be a full code, and will not change his mind. I gently explained I wasn't trying to change his mind, I just wanted to be sure the chart accurately reflected his wishes. He states his pain is at around a 2. He is happy with this number, as he states he doesn't want to take anymore narcotics r/t bowel motility. He does have a bowel program in place, and did not wish to discuss any futher. I will remain available.
--- NOTE | 2020-12-19 19:36 | NUR ---
PT RECEIVING 1 UNIT PRBC; HOME GLARGINE NOT AVAILABLE FOR NON-FORMULARY ADMINISTRATION (PT UNSURE WHERE GLARGINE IS); PT'S FINAL PREPRANDIAL CBG OF 211 NOT ABLE TO BE TREATED DUE TO UNAVAILABILITY OF HUMALOG; INCENTIVE SPIROMETRY EDUCATION GIVEN AND PT DEMONSTRATED USE 6X/HR WHILE AWAKE; PIV L HAND DRESSING CHANGED 2/2 LEAKAGE; PT LETHARGIC AND APPEARS TO FALL ASLEEP SOON HE IS NOT BEING STIMULATED ANYMORE; PT REQUIRED FULL FEED ASSIST DURING MEALS DUE TO LETHARGY; PT HAD A LARGE LOOSE BM; PT'S GROIN FOLD, COCCYX, AND SCROTAL SKIN PINK AND FLAKY; PT'S ACCESSED PORT WDL; PT DENIES ADDITIONAL CONCERNS AT THIS TIME.
--- NOTE | 2020-12-20 02:48 | NUR ---
TOILETING/WOUND CARE AT 0145 PT ASSISTED BY THIS RN, SULMA RN, AND KASEY WITT ONTO BEDPAN DUE TO PT REPORTING IMPENDING BM. PT CLEANED UP, ATTENDS CHANGED, WOUNDS TO COCCYX, R LEG, REDRESSED WITH MEPILEX, SKIN BARRIER CREAM APPLIED TO REDDENED/DARKENED AREAS. PT TOLERATED WELL. REPOSITIONED IN BED WITH CEILING LIFT AND HIPS SUPPORTED WITH PILLOWS TO RELIEVE PRESSURE ON BUTTOCKS. WOUND TO TOP OF L FOOT AND TOES OPEN AND BLEEDING, NON-ADHERENT DRESSING APPLIED WITH NEOSPORIN AND SECURED WITH KERLEX AND SILK TAPE. PT'S HEELS FLOATED, LEGS ELEVATED. PT DEMONSTRATES USE OF INCENTIVE SPIROMETER WITH THIS RN AT BEDSIDE. THIS RN REMINDS PT THAT HE DOES NOT HAVE TO REPEATEDLY SUCK THROUGH THE MOUTHPIECE AND GOAL IS FOR DEEP INSPIRATION TO MEET SET MARKER. PT VERBALIZES UNDERSTANDING.
[2020-12-20 04:14] LABS: BASOPHILS ABSOLUTE AUTO 0.04 K/mm3 (0.00-0.23); BASOPHILS PERCENT AUTO 0 % (0-2); EOSINOPHILS ABSOLUTE AUTO 0.25 K/mm3 (0.00-0.68); EOSINOPHILS PERCENT AUTO 2 % (0-6); Hematocrit 22.4 % (37.0-53.0); Hemoglobin 7.1 g/dL (13.5-17.5); IMMATURE GRAN PERCENT AUTO 1 % (0-1); LYMPHOCYTES ABSOLUTE AUTO 1.89 K/mm3 (0.84-5.20); LYMPHOCYTES PERCENT AUTO 13 % (21-46); MONOCYTES ABSOLUTE AUTO 0.84 K/mm3 (0.16-1.47); MONOCYTES PERCENT AUTO 6 % (4-13); Mean Corpuscular HGB 29.5 pg (26.0-34.0); Mean Corpuscular HGB Conc 31.7 g/dL (31.5-36.5); Mean Corpuscular Volume 93 fL (80-100); Mean Platelet Volume 10.7 fL (9.1-12.4); NEUTROPHILS ABSOLUTE AUTO 11.56 K/mm3 (1.96-9.15); NEUTROPHILS PERCENT AUTO 79 % (41-73); Platelet Count 173 K/mm3 (150-400); RDW Coefficient Variation 14.7 % (11.7-14.2); Red Blood Cell Count 2.41 M/mm3 (4.30-5.90); White Blood Cell Count 14.68 K/mm3 (4.00-11.30)
[2020-12-20 04:40] LABS: Albumin, Blood 1.6 g/dL (3.4-5.0); Albumin/Globulin Ratio 0.3 (0.8-1.8); Bilirubin, Total 0.7 mg/dL (0.1-1.0); Bun/Creatinine Ratio 23.3 (12.0-20.0); Calcium, Blood 6.9 mg/dL (8.5-10.1); Creatinine, Blood 1.59 mg/dL (0.60-1.20); Globulin, Blood 5.5 g/dL (2.2-4.0); Magnesium, Blood 1.9 mg/dL (1.6-2.4); Phosphorus, Blood 2.6 mg/dL (2.5-4.9); Potassium, Blood 3.5 mmol/L (3.5-5.5); Total Protein, Blood 7.1 g/dL (6.4-8.2)
--- NOTE | 2020-12-20 05:44 | NUR ---
SHIFT SUMMARY PT ALERT AT BEGINNING OF NOC SHIFT, USED BEDPAN WITH ASSISTANCE. ATE SANDWICH AND DRANK PO FLUIDS INDEPENDENTLY. X1 UNIT OF PRBC INFUSED W/O INCIDENT. PT HAD OPEN WOUND TO TOP OF L FOOT FROM EXISTING SORES THAT OPENED. DRESSED. PRESSURE INJURY AREAS REDRESSED WITH MEPILEX. PT REINSTRUCTED ON USE OF INCENTIVE SPIROMETER DUE TO TAKING SHORT FREQUENT INHALATIONS. PT BECAME INCREASINGLY LETHARGIC AND DISORIENTED LATER IN THE NIGHT AND EARLY THIS AM. FREQUENTLY CALLS FINAL BLOCK PRESS OPERATOR LIGHT AND IS ASLEEP ON STAFF ARRIVAL TO BEDSIDE. VSS T/O NIGHT. PT REFUSING CONTINUOUS OXIMETRY, SATS 95-96% ON RA DURING BEDSIDE CHECKS.
[2020-12-20 14:47] LABS: Hematocrit 25.1 % (37.0-53.0); Hemoglobin 8.1 g/dL (13.5-17.5); Mean Corpuscular HGB 29.5 pg (26.0-34.0); Mean Corpuscular HGB Conc 32.3 g/dL (31.5-36.5); Mean Corpuscular Volume 91 fL (80-100); Mean Platelet Volume 10.8 fL (9.1-12.4); Platelet Count 179 K/mm3 (150-400); RDW Coefficient Variation 15.4 % (11.7-14.2); RDW Standard Deviation 51.3 fL (35.1-46.3); Red Blood Cell Count 2.75 M/mm3 (4.30-5.90); White Blood Cell Count 12.07 K/mm3 (4.00-11.30)
--- NOTE | 2020-12-20 15:46 | NUR ---
Spiritual care visit conducted. Patient is lying in bed (in PCU) and alert. Patient tells me about his M.S. and many other comorbidities. He talks about his living arrangements at the [place] and then shares at length about his family ( and 3 grown children). Patient also discusses his Mormonism beliefs, his basurto to keep on living and the thoughts and people he relies on for hope and perseverance. Patient gives personal information about his struggles. I reinforce helpful attitudes and practices, normalize his struggles and provide therapeutic listening, recitation of scripture and prayer. Spiritual care will continue to remain available to patient and family.
--- NOTE | 2020-12-20 17:51 | NUR ---
SHIFT SUMMARY PATIENT TRANSFERRED FROM PCU 10 TO ROOM 335. PATIENT DENIES PAIN, NAUSEA, AND SHORTNESS OF BREATH. PATIENT HAD SEVERAL LOOSE STOOLS TODAY, WOUNDS CLEANED AND NEW MEPILEX APPLIED. PATIENT BLOOD GLUCOSE 381 BEFORE TRANSFERRING FROM PCU, NEW ORDERS FOR ONE TIME DOSE OF 5 UNTIS OF REGULAR INSULIN ENTERED BY FEATHER CUTTING MACHINE FEEDER.UPON ONE HOUR RECHECK, CBG 298. PER DOCTOR ISTRATE HEPARIN FLUSH PREFERED TO TKO FLUIDS FOR MEDIPORT FLUSH.
--- NOTE | 2020-12-21 04:32 | NUR ---
SUMMARY PT HAD NO COMPLAINTS. PT REPOSITIONED FREQUENTLY FOR COMFORT. PT BROWNING DRAINING TO GRAVITY. PT HAS BEEN SLEEPING WELL W/ CPAP T/O SHIFT. SKIN KEPT C/D/I. DRESSINGS CHANGED NEEDED. CALL LIGHT IN REACH.
[2020-12-21 05:45] LABS: BASOPHILS ABSOLUTE AUTO 0.05 K/mm3 (0.00-0.23); BASOPHILS PERCENT AUTO 1 % (0-2); EOSINOPHILS ABSOLUTE AUTO 0.35 K/mm3 (0.00-0.68); EOSINOPHILS PERCENT AUTO 4 % (0-6); Hematocrit 24.8 % (37.0-53.0); IMMATURE GRAN ABSOLUTE AUTO 0.06 K/mm3 (0.00-0.10); IMMATURE GRAN PERCENT AUTO 1 % (0-1); LYMPHOCYTES ABSOLUTE AUTO 1.85 K/mm3 (0.84-5.20); LYMPHOCYTES PERCENT AUTO 20 % (21-46); MONOCYTES ABSOLUTE AUTO 0.82 K/mm3 (0.16-1.47); MONOCYTES PERCENT AUTO 9 % (4-13); Mean Corpuscular HGB 29.3 pg (26.0-34.0); Mean Corpuscular HGB Conc 32.3 g/dL (31.5-36.5); Mean Corpuscular Volume 91 fL (80-100); Mean Platelet Volume 10.4 fL (9.1-12.4); NEUTROPHILS ABSOLUTE AUTO 6.06 K/mm3 (1.96-9.15); NEUTROPHILS PERCENT AUTO 66 % (41-73); Platelet Count 186 K/mm3 (150-400); RDW Coefficient Variation 15.5 % (11.7-14.2); RDW Standard Deviation 51.3 fL (35.1-46.3); Red Blood Cell Count 2.73 M/mm3 (4.30-5.90); White Blood Cell Count 9.19 K/mm3 (4.00-11.30)
[2020-12-21 06:22] LABS: Albumin, Blood 1.5 g/dL (3.4-5.0); Albumin/Globulin Ratio 0.3 (0.8-1.8); Bilirubin, Total 0.4 mg/dL (0.1-1.0); Bun/Creatinine Ratio 25.3 (12.0-20.0); Calcium, Blood 7.3 mg/dL (8.5-10.1); Creatinine, Blood 1.5 mg/dL (0.60-1.20); Globulin, Blood 5.9 g/dL (2.2-4.0); Magnesium, Blood 1.9 mg/dL (1.6-2.4); Phosphorus, Blood 2.2 mg/dL (2.5-4.9); Potassium, Blood 3.6 mmol/L (3.5-5.5); Total Protein, Blood 7.4 g/dL (6.4-8.2)
[2020-12-21] MEDS ORDERED: CEFD300 PO (12:12)
[2020-12-21] MEDS ORDERED: ONDA4ODT MM (12:13)
[2020-12-21] MEDS ORDERED: PREG50 PO (12:13)
[2020-12-21] MEDS ORDERED: Florastor250 MG PO (12:14)
[2020-12-21 13:04] LABS: SARS-Cov-2 (COVID-19) PCR, MMC NEGATIVE (NEGATIVE)
== END 2020-12-21 15:20 | DRG 698 ==
LOC: ER 11:43 → PCU 14:28 → MEDS 12-20 15:39 → ENPENDDIS 12-21 11:06 → MEDS 12-21 15:20
PROVIDERS: Emergency Medicine; ADMIT Family Medicine
DX: T83.511A Infection and inflammatory reaction due to indwelling urethral catheter, initial encounter (principal); R65.20 Severe sepsis without septic shock; A41.51 Sepsis due to Escherichia coli [E. coli]; A41.81 Sepsis due to Enterococcus; N17.9 Acute kidney failure, unspecified; E87.1 Hypo-osmolality and hyponatremia; Z68.41 Body mass index [BMI] 40.0-44.9, adult; N39.0 Urinary tract infection, site not specified; Z20.822 Contact with and (suspected) exposure to COVID-19; G35 Multiple sclerosis; D63.1 Anemia in chronic kidney disease; E86.0 Dehydration; E83.42 Hypomagnesemia; R79.89 Other specified abnormal findings of blood chemistry; I12.9 Hypertensive chronic kidney disease with stage 1 through stage 4 chronic kidney disease, or unspecified chronic kidney disease; E11.42 Type 2 diabetes mellitus with diabetic polyneuropathy; E66.01 Morbid (severe) obesity due to excess calories; E11.22 Type 2 diabetes mellitus with diabetic chronic kidney disease; Z74.01 Bed confinement status; N18.30 Chronic kidney disease, stage 3 unspecified; N31.9 Neuromuscular dysfunction of bladder, unspecified; F32.9 Major depressive disorder, single episode, unspecified; D50.9 Iron deficiency anemia, unspecified; N40.0 Benign prostatic hyperplasia without lower urinary tract symptoms; M54.9 Dorsalgia, unspecified; E78.5 Hyperlipidemia, unspecified; G89.29 Other chronic pain; Z96.0 Presence of urogenital implants; Z88.0 Allergy status to penicillin; G47.33 Obstructive sleep apnea (adult) (pediatric); Z88.7 Allergy status to serum and vaccine; Z79.899 Other long term (current) drug therapy; Z90.89 Acquired absence of other organs; Z86.14 Personal history of Methicillin resistant Staphylococcus aureus infection; Z79.4 Long term (current) use of insulin; Y84.6 Urinary catheterization as the cause of abnormal reaction of the patient, or of later complication, without mention of misadventure at the time of the procedure
CPT/HCPCS: 36415; 36430; 71045; 74176; 80053; 80202; 81001; 82947; 83605; 83735; 84100; 84145; 85025; 85027; 86850; 86900; 86901; 86922; 87040; 87077; 87086; 87147; 87186; 94660; 94762; 96365; 96375; 99285-25; A9270; J0696; J1642; J1650; J1815; J1940; J3370; J3475; J7030; J7040; J7050; P9016; U0004

== ENCOUNTER 2021-12-07 07:37 | Inpatient (IN) | payer MEDICARE, OTHER ==
[~2021-12-07] VITALS: Ht 182.9 cm; Wt 117.0 kg
[~2021-12-07 07:37] MED LIST changes: +Acetaminophen325 M1 PO; +Acetic Acid1000 ML; +BELLADONNA PR; +CALCIUM CIT 311 EACH PO; +CEFD300 PO; +DEX4 GLUCOSE33 G2 PO; +FOSFOMYCIN TROME3 G1 PO; +GLUCAGEN1 MG/1 M1 IM; +HEPARIN IV; +Inderal60 MG PO; +METAMUCIL POWD575 GM PO; +METSALMENC TOP; +MINERAL OIL135 M1 PR; +OPIUM PR; +OXYC5 PO; +PREG50 PO
[2021-12-07 09:07] LABS: BASOPHILS ABSOLUTE AUTO 0.04 K/mm3 (0.00-0.23); BASOPHILS PERCENT AUTO 1 % (0-2); EOSINOPHILS ABSOLUTE AUTO 0.38 K/mm3 (0.00-0.68); EOSINOPHILS PERCENT AUTO 7 % (0-6); Hematocrit 28.8 % (37.0-53.0); Hemoglobin 9.3 g/dL (13.5-17.5); IMMATURE GRAN ABSOLUTE AUTO 0.01 K/mm3 (0.00-0.10); IMMATURE GRAN PERCENT AUTO 0 % (0-1); LYMPHOCYTES ABSOLUTE AUTO 1.46 K/mm3 (0.84-5.20); LYMPHOCYTES PERCENT AUTO 27 % (21-46); MONOCYTES PERCENT AUTO 9 % (4-13); Mean Corpuscular HGB 30.9 pg (26.0-34.0); Mean Corpuscular HGB Conc 32.3 g/dL (31.5-36.5); Mean Corpuscular Volume 96 fL (80-100); Mean Platelet Volume 10.5 fL (9.1-12.4); NEUTROPHILS ABSOLUTE AUTO 3.08 K/mm3 (1.96-9.15); NEUTROPHILS PERCENT AUTO 56 % (41-73); Platelet Count 148 K/mm3 (150-400); RDW Coefficient Variation 16.5 % (11.7-14.2); RDW Standard Deviation 57.6 fL (35.1-46.3); Red Blood Cell Count 3.01 M/mm3 (4.30-5.90); White Blood Cell Count 5.47 K/mm3 (4.00-11.30)
[2021-12-07 09:25] LABS: Albumin, Blood 2.5 g/dL (3.4-5.0); Albumin/Globulin Ratio 0.4 (0.8-1.8); Bilirubin, Total 0.8 mg/dL (0.1-1.0); Bun/Creatinine Ratio 58.4 (12.0-20.0); Calcium, Blood 11.1 mg/dL (8.5-10.1); Creatinine, Blood 1.01 mg/dL (0.60-1.20); Globulin, Blood 6.2 g/dL (2.2-4.0); Total Protein, Blood 8.7 g/dL (6.4-8.2)
[2021-12-07 12:17] LABS: Base Excess Venous 3.7 mmol/L; Bicarbonate Venous 27.5 mmol/L (24.0-30.0); PCO2 Venous 39.6 mmHg (38-42); PO2 Venous 84.2 mmHg (38-42); pH Blood Venous 7.45 (7.34-7.37)
--- NOTE | 2021-12-07 17:26 | NUR ---
PT AOX1 WILL ANSWER TO HIS NAME. PT BEDFAST AND A PARAPLEGIC AND HIS R ARM IS CONTRACTED. PT HAS CHRONIC BROWNING INTACT. PT HAD RECTAL TUBE PLACED ON ARRIVAL,BUT STOOL WAS COMMING OUT AROUND IN AND IT WAS REMOVED AT THIS TIME. COCCYX AREA LOOKS LIKE A STAGE ONE WOUND SEE PHOTOS IN CHART. PT IS TURNED Q2 HRS AND HAS TO BE CHECKED FREQUENTLY HE GET LACTALOSE EMEMAS AT THIS TIME. PT DOES NOT SEEM IMPULSIVE AT THIS TIME AND IS RESTING WILL CONTINUE TO MONITOR.
[2021-12-07 20:53] LABS: Source, Urine Foley catheter
[2021-12-07 20:56] LABS: Bilirubin, Urine Neg (Neg); Blood, Urine 2+ (Neg); Glucose Qualitative, Urine Neg (Neg); Ketones, Urine Neg (Neg); Leukocyte Esterase, Urine 3+ (Neg); Nitrite, Urine Pos (Neg); Protein, Urine 1+ (Neg); Urobilinogen, Urine NORM (Normal)
[2021-12-07 21:01] LABS: Appearance, Urine Hazy (Clear); Color, Urine Yellow (P-Yellow)
[2021-12-07 21:03] LABS: Amorphous Light (0-Heavy); Bacteria Few /hpf; Mucus Light (0-Heavy); Red Blood Cells, Urine 0-2 /hpf (0-2); Squamous Epithelial Cells Rare /hpf (Few); White Blood Cells, Urine 25-50 /hpf (0-5)
--- NOTE | 2021-12-08 04:36 | NUR ---
PT A/O TO SELF AND CAN FOLLOW COMMANDS. PT HAS A CHRONIC BROWNING THAT IS PATENT DRAINING YELLOW URINE TO GRAVITY. 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 PT IS PARAPLEGIC WITH SEVERE NEUROPATHY IN BOTH LOWER EXTREMITIES. PT HAS AN ACCESSED MEDIPORT IN THE [facility]. PT HAD A LACTULOSE/STERILE WATER ENEMA 800/1000ML ADMISTERED. PT DID NOT TOLERATE WELL FLUID LEAKED OUT OVER PADS. PT HAS GENERALIZED PAIN THROUGOUT DUE TO MS. 2-3 PERSON MAX ASSIST REQUIRED TO REPOSITION. PT WAS INCONTINENT OF BOWELS XL LOOSE AND DARK DURING SHIFT. PT IS CURRENTLY WATCHING TV WITH CALL LIGHT WITHIN REACH AND BED IN LOW POSITION.
[2021-12-08 04:37] LABS: Hematocrit 28.2 % (37.0-53.0); Mean Corpuscular HGB 30.8 pg (26.0-34.0); Mean Corpuscular HGB Conc 31.9 g/dL (31.5-36.5); Mean Corpuscular Volume 97 fL (80-100); Platelet Count 159 K/mm3 (150-400); RDW Standard Deviation 58.8 fL (35.1-46.3); Red Blood Cell Count 2.92 M/mm3 (4.30-5.90); White Blood Cell Count 6.43 K/mm3 (4.00-11.30)
[2021-12-08 05:23] LABS: Bun/Creatinine Ratio 50.5 (12.0-20.0); Calcium, Blood 10.4 mg/dL (8.5-10.1); Creatinine, Blood 1.05 mg/dL (0.60-1.20); Potassium, Blood 3.5 mmol/L (3.5-5.5); Thyroid Stimulating Hormone 1.72 uIU/mL (0.360-4.800)
--- NOTE | 2021-12-08 06:16 | NUR ---
MANAGER OF CONSTRUCTION NOTES AND ASSESSMENT REVIEWED AND ACCEPTED.
[2021-12-08] MEDS ORDERED: FLUC200 (11:42)
[2021-12-08] MEDS ORDERED: NOVOLOG FL100 UNIT/3 SC (12:10)
[2021-12-08] MEDS ORDERED: MAGNESIUM OXID500 MG PO (13:57)
[2021-12-08] MEDS ORDERED: LOSA50 PO (13:57)
[2021-12-08] MEDS ORDERED: MELA3 PO (13:58)
[2021-12-08] MEDS ORDERED: METSALMENC TOP (13:59)
[2021-12-08] MEDS ORDERED: WEGOVY1 MG/0.5 M SC (14:05)
--- NOTE | 2021-12-08 16:43 | NUR ---
PT MUCH MORE AO THIS AFTERNOON AOX2 AND COOPERATIVE OF CARE. PT HAS BEEN ABLE TO EAT TODAY AND SEEMS TO BE IN GOOD SPIRITS. PT IS A Q2 TURN AND NEEDS CREAM APPLIED TO HIS COCCYX AREA WITH EACH CHANGE TO PREVENT ANYMORE BREAK DOWN. PT IS USING CALL LIGHT AND MAKING HIS NEEDS KNOWN TODAY. PT TREATED FOR BODY PAIN PER EMAR. CALL LIGHT IS WITHIN REACH WILL CONTINUE TO MONITOR.
[2021-12-09 04:16] LABS: Hematocrit 25.7 % (37.0-53.0); Hemoglobin 8.2 g/dL (13.5-17.5); Mean Corpuscular HGB 31.3 pg (26.0-34.0); Mean Corpuscular HGB Conc 31.9 g/dL (31.5-36.5); Mean Corpuscular Volume 98 fL (80-100); Platelet Count 127 K/mm3 (150-400); RDW Standard Deviation 60.8 fL (35.1-46.3); Red Blood Cell Count 2.62 M/mm3 (4.30-5.90); White Blood Cell Count 6.31 K/mm3 (4.00-11.30)
--- NOTE | 2021-12-09 04:25 | NUR ---
SHIFT SUMMARY PATIENT MENTATION IMPROVED FROM LAST NOC SHIFT. AXOX 3 AND BEDREST. PATIENT ABLE TO TELL STORIES FROM [employer] CAREER. CBG 293. MEDIPORT INTACT WITH NS INFUSING AT 75 mL/HR. CHRONIC BROWNING PATENT AND DRAINING TO GRAVITY. VSS/AFEBRILE. REPORTED GENERAL PAIN AND OXYCODONE 5 MG GIVEN PER EMAR. CONTINUE TO HAVE LOOSE STOOLS T/O SHIFT. ON ORAL LACTULOSE PER EMAR. CALL LIGHT IN REACH. BED IN LOWEST POSITION. WILL CONTINUE TO MONITOR UNTIL DAY SHIFT NURSE ASSUMES CARE.
[2021-12-09 04:32] LABS: Bun/Creatinine Ratio 47.1 (12.0-20.0); Calcium, Blood 8.7 mg/dL (8.5-10.1); Creatinine, Blood 1.02 mg/dL (0.60-1.20); Potassium, Blood 3.6 mmol/L (3.5-5.5)
--- NOTE | 2021-12-10 04:06 | NUR ---
SUMMARY: PT A/OX3 BUT IS FORGETFULL AT TIMES W/REORIENTATION AND REMINDERS PROVIDED PRN. INTERVENTIONS IN PLACE FOR SBD PREVENTION BUT PRESSURE SORES TO BUTTOCKS/COCCYX APPEAR TO BE WORSENING. NEW PHOTO DOCUMENTATION COMPLETED. AIRBED REMAINS IN PLACE W/INCREASED TURN SCHEDULE MAINTAINED AND HEIGHTENED ATTEMPTS MADE TO KEEP SKIN MOISTURE MINIMAL. ATTENDS CHANGED OFTEN FOR CONTINUED LOOSE STOOL INCONTINENCE AND CHRONIC BROWNING IS PATENT/DRAINING. [place] DOSE OF LACTULOSE HELD THIS SHIFT D/T FREQUENCY OF BM'S AND AMMONIA IS TRENDING DOWNWARD. BARRIER CREAMS APPLIED TO BUTTOCKS AND MICONAZOLE POWDER APPLIED TO KATARZYNA AREA. NS INFUSES AT 75 ML/HR VIA MEDIPORT AND PRN ROXICODONE RECIEVED FOR TOLERABLE RELIEF OF GENERAL PAIN. VSS/AFEBRILE, NO ACUTE CHANGES. POSSIBLE D/C TODAY. WCTM AND REPORT TO DAY RN.
[2021-12-10 11:50] LABS: Influenza A, PCR NEGATIVE (NEGATIVE); Influenza B, PCR NEGATIVE (NEGATIVE); Resp Syncytial Virus, PCR NEGATIVE (NEGATIVE); SARS-Cov-2 (COVID-19) PCR, MMC NEGATIVE (NEGATIVE)
--- NOTE | 2021-12-10 13:22 | NUR ---
DISCHARGE SUMMARY PT A/O X3; PLEASANT AND COOPERATIVE WITH CARE. PT ON LACTULOSE AND HAVING CONSTANT STOOLS. WOUNDS ON BOTTOM OPEN TO AIR AND CREAM APPLIED DUE TO CONSTANT STOOLING. PT HAS MOMENTS OF CONFUSION THAT COME AND GO BUT IS ABLE TO BE REORIENTED. AT BEDSIDE. VSS. [facility]
== END 2021-12-10 13:19 | disposition home or self-care (01) | DRG 698 ==
LOC: ER 07:37 → MEDS 10:48
PROVIDERS: Physician Assistant; ADMIT Internal Medicine
DX: T83.511A Infection and inflammatory reaction due to indwelling urethral catheter, initial encounter (principal); R53.2 Functional quadriplegia; N39.0 Urinary tract infection, site not specified; G47.33 Obstructive sleep apnea (adult) (pediatric); K75.81 Nonalcoholic steatohepatitis (NASH); K74.60 Unspecified cirrhosis of liver; D63.1 Anemia in chronic kidney disease; G35 Multiple sclerosis; L89.151 Pressure ulcer of sacral region, stage 1; K72.90 Hepatic failure, unspecified without coma; N31.9 Neuromuscular dysfunction of bladder, unspecified; E66.9 Obesity, unspecified; Z88.1 Allergy status to other antibiotic agents; E11.9 Type 2 diabetes mellitus without complications; N40.0 Benign prostatic hyperplasia without lower urinary tract symptoms; N18.2 Chronic kidney disease, stage 2 (mild); F32.A Depression, unspecified; E78.5 Hyperlipidemia, unspecified; E11.40 Type 2 diabetes mellitus with diabetic neuropathy, unspecified; Z98.890 Other specified postprocedural states; R33.9 Retention of urine, unspecified; Z79.899 Other long term (current) drug therapy
CPT/HCPCS: 0241U; 51702; 70450; 71045; 80048; 80053; 81001; 82140; 82803; 82947; 83605; 84436; 84443; 85025; 85027; 87077; 87086; 87186; 93005; 93010; 94762; 96365-59; 99285-25; A9270; J0713; J1642; J1815; J7030